=== PATIENT | male | born 1975 | race Two or more races ===

== ENCOUNTER 2022-09-02 16:27 | Inpatient (IN) | payer MEDICAID, OTHER ==
[~2022-09-02] VITALS: Ht 177.8 cm; Wt 74.1 kg
[2022-09-02] MEDS ORDERED: SODIUM CHLORIDE 0.9% 1,000 ML IV ONE (16:45)
[2022-09-02] MEDS ORDERED: ETOMIDATE (2MG/ML) 20ML VIAL IV ONE (16:45)
[2022-09-02] MEDS ORDERED: PANTOPRAZOLE 40 MG/10 ML VIAL INJ IV ONE (16:45)
[2022-09-02] MEDS ORDERED: NOREPINEPHRINE 8 MG/250ML KIT 250 ML IV SCH (16:45)
[2022-09-02] MEDS ORDERED: SUCCINYLCHOLINE CHLORIDE 20 MG/ML 10ML VIAL IV ONE (16:45)
[2022-09-02] MEDS: MIDAZOLAM DRIP 50 mg/50mL 50 ML IV SCH ×2 (16:45→23:10)
[2022-09-02] MEDS ORDERED: NOREPINEPHRINE 8 MG/250ML KIT 250 ML IV ONE (16:49)
[2022-09-02] MEDS ORDERED: OCTREOTIDE ACETATE 100 MCG in SODIUM CHL 0.9% 50 ML IV ONE (17:00)
[2022-09-02 17:07] LABS: Hematocrit 15.1 % (41.0-53.0); Mean Corpuscular Hemoglobin 29.4 pg (28.0-32.0); Mean Corpuscular Hgb Conc. 30.9 g/dL (32.0-36.0); Mean Corpuscular Volume 95.1 fL (80.0-100.0); Red Blood Cells 1.59 10^6/uL (4.5-5.90); Red Cell Distribution Width 13.6 % (11.8-14.3)
[2022-09-02] MEDS ORDERED: OCTREOTIDE ACETATE 100 MCG/ML VL IV ONE ×2 (17:15)
[2022-09-02 17:18] LABS: White Blood Cell 58.3 10^3/uL (4.4-10.8)
[2022-09-02 17:19] LABS: Hemoglobin 4.7 g/dL (13.5-17.5)
[2022-09-02 17:21] LABS: Basophils % (manual) 0 (0.0-2.0); Blast Cells 0; Eosinophils % (manual) 0 (0-7); Promyelocytes % 0; Reactive Lymphocytes 0
[2022-09-02 17:22] LABS: INR 1.25 (0.9-1.15); Partial Thromboplastin Time 45.4 sec (24.6-33.4)
[2022-09-02 17:24] LABS: Albumin 1.1 g/dL (3.4-5.0); BUN/Creatinine Ratio 30.4 (10.0-20.0); Potassium 4.3 mmol/L (3.5-5.1)
[2022-09-02 17:27] LABS: Bilirubin, Total 0.2 mg/dL (0.2-1.0)
[2022-09-02] MEDS: NOREPINEPHRINE 8 MG/250ML KIT 250 ML IV SCH (17:30)
[2022-09-02] MEDS ORDERED: CEFEPIME 1GM/ 50ML 50 ML IV ONE (17:30)
[2022-09-02] MEDS ORDERED: SODIUM CHLORIDE 0.9% IV ONE (17:30)
[2022-09-02 18:10] VITALS: BP 85/42
[2022-09-02] MEDS ORDERED: SODIUM CHLORIDE 0.9% 2,450 ML IV ONE (18:15)
[2022-09-02 18:26] LABS: Lactic Acid w/Reflex 9.8 mmol/L (0.4-2.0)
[2022-09-02] MEDS: OCTREOTIDE ACETATE 500 MCG in SODIUM CHL 0.9% 99 ML IV SCH (19:06)
[2022-09-02 19:12] LABS: Band Neutrophils % (manual) 12; Lymphocytes % (manual) 6 (10.0-50.0); Metamyelocytes % 5; Monocytes % (manual) 1 (0-12); Myelocytes % 6
[2022-09-02 20:00] VITALS: BP 90/47
[2022-09-02 20:01] LABS: Urine Amorphous Crystal FEW /hpf (None Seen); Urine Bacteria FEW /hpf (None Seen); Urine Blood 1+ /uL (Negative); Urine Mucus FEW (None Seen); Urine Specific Gravity 1.013 (1.001-1.035); Urine Sperm PRESENT /hpf (None Seen); Urine WBC 24 /hpf (0 - 3)
[2022-09-02 20:05] LABS: Alcohol, Urine < 3.0 mg/dL (0-10); Amphetamine Screen, Urine NEGATIVE (NEGATIVE); Barbiturate Scree,Urine NEGATIVE (NEGATIVE); Benzodiazephine Screen, Urine POSITIVE (NEGATIVE); Cannabinoid Screen, Urine NEGATIVE (NEGATIVE); Cocaine Screen, Urine NEGATIVE (NEGATIVE)
[2022-09-02 20:07] VITALS: BP 90/47
[2022-09-02 20:13] LABS: Opiate Scree,Urine NEGATIVE (NEGATIVE); Phencyclidine Screen, Urine NEGATIVE (NEGATIVE)
[2022-09-02] MEDS ORDERED: fentaNYL Drip 2500mCg/250mlNS 250 ML IV ONE (20:17)
[2022-09-02] MEDS: fentaNYL Drip 2500mCg/250mlNS 250 ML IV SCH (20:18)
[2022-09-02 20:29] VITALS: BP 144/57
[2022-09-02 20:40] LABS: Lactic Acid w/Reflex 5.1 mmol/L (0.4-2.0)
[2022-09-02] MEDS: InsuLIN REG 1unit/0.01ml Soln (100units/ml) SC SCH (22:00)
[2022-09-02] MEDS ORDERED: ALBUMIN 25% 100 ML IV ONE (22:00)
[2022-09-02] MEDS ORDERED: VANCOMYCIN PER PHARMACY 0 MG IV SCH (22:00)
[2022-09-02] MEDS ORDERED: IBUPROFEN 100MG/5ML ORAL SUSP 100 MG/5 ML UD GT PRN (22:00)
[2022-09-02 22:05] VITALS: BP 92/47
[2022-09-02] MEDS ORDERED: SODIUM CHLORIDE 0.9% 1,000 ML IV SCH (22:15)
[2022-09-02 22:54] LABS: Lactic Acid w/Reflex 8.6 mmol/L (0.4-2.0)
[2022-09-02] MEDS ORDERED: VANCOMYCIN 1GM/250ML 250 ML IV ONE (23:00)
[2022-09-02 23:15] VITALS: BP 88/46
[2022-09-02] MEDS ORDERED: NITROGLYCERIN 0.4 MG SL TAB SL PRN (23:30)
[2022-09-02] MEDS ORDERED: MORPHINE SULFATE INJ 2 MG/ml SYRG IV PRN (23:30)
[2022-09-02] MEDS: FAMOTIDINE (10MG/ML) 2ML VL IV SCH (23:32)
[2022-09-03] VITALS (100 sets, daily range): BP systolic 86–111; BP diastolic 38–65
[2022-09-03] MEDS: PIPERACILLIN-TAZOB 2.25GM 50 ML IV SCH ×4 (00:28→17:38)
[2022-09-03] MEDS ORDERED: ACETAMINOPHEN 650 MG RECT SUPP PR ONE (00:30)
[2022-09-03] MEDS: ACCU-CHEK COMFORT CURVE STRIP VI SCH ×5 (01:38→21:52)
[2022-09-03] MEDS ORDERED: OCTREOTIDE ACETATE 100 MCG/ML VL ONE (02:35)
[2022-09-03] MEDS: MIDAZOLAM DRIP 50 mg/50mL 50 ML IV SCH ×4 (02:40→20:56)
[2022-09-03] MEDS: OCTREOTIDE ACETATE 500 MCG in SODIUM CHL 0.9% 99 ML IV SCH ×3 (04:46→23:07)
[2022-09-03] MEDS: InsuLIN REG 1unit/0.01ml Soln (100units/ml) SC SCH ×4 (06:15→21:53)
[2022-09-03 08:31] LABS: Hemoglobin 7.1 g/dL (13.5-17.5)
[2022-09-03 08:33] LABS: Hematocrit 21.9 % (41.0-53.0); Mean Corpuscular Hemoglobin 27.6 pg (28.0-32.0); Mean Corpuscular Hgb Conc. 32.6 g/dL (32.0-36.0); Mean Corpuscular Volume 84.8 fL (80.0-100.0); Red Blood Cells 2.58 10^6/uL (4.5-5.90); Red Cell Distribution Width 18.3 % (11.8-14.3)
[2022-09-03 08:51] LABS: Basophils % (manual) 0 (0.0-2.0); Blast Cells 0; Eosinophils % (manual) 0 (0-7); Metamyelocytes % 0; Promyelocytes % 0; Reactive Lymphocytes 0; White Blood Cell 39.3 10^3/uL (4.4-10.8)
[2022-09-03 08:54] LABS: Albumin 1.8 g/dL (3.4-5.0); Calcium 6.9 mg/dL (8.5-10.1); Potassium 4.1 mmol/L (3.5-5.1)
[2022-09-03 08:58] LABS: BUN/Creatinine Ratio 35.7 (10.0-20.0); Bilirubin, Total 1.3 mg/dL (0.2-1.0); Total Protein 4.3 g/dL (6.4-8.2)
[2022-09-03 09:23] LABS: Band Neutrophils % (manual) 30; Lymphocytes % (manual) 7 (10.0-50.0); Monocytes % (manual) 2 (0-12); Myelocytes % 1
[2022-09-03] MEDS: FAMOTIDINE (10MG/ML) 2ML VL IV SCH (09:57)
[2022-09-03] MEDS: NOREPINEPHRINE 8 MG/250ML KIT 250 ML IV SCH ×2 (09:59→23:07)
[2022-09-03] MEDS ORDERED: SUCRALFATE 1 GM/10 ML ORAL SUSP GT SCH ×2 (12:00→17:15)
[2022-09-03 12:55] LABS: Cholesterol < 50 mg/dL (< 200)
[2022-09-03 12:58] LABS: HDL Cholesterol 9 mg/dL (40-59); LDL Cholesterol 17 mg/dL (< 100); Triglycerides 161 mg/dL (< 150)
[2022-09-03] MEDS ORDERED: SODIUM CHLORIDE 0.9% 2,000 ML IV ONE (13:45)
[2022-09-03] MEDS: SODIUM CHLORIDE 0.9% 1,000 ML IV SCH ×2 (15:28→21:52)
[2022-09-03] MEDS: fentaNYL Drip 2500mCg/250mlNS 250 ML IV SCH (15:28)
[2022-09-03] MEDS: PANTOPRAZOLE 40mg/50ML NS AE 50 ML IV SCH ×2 (17:38→20:56)
[2022-09-03] MEDS ORDERED: PANTOPRAZOLE 40 MG/10 ML VIAL INJ IV SCH (22:00)
[2022-09-04] VITALS (114 sets, daily range): BP systolic 55–160; BP diastolic 35–104
[2022-09-04] MEDS: PIPERACILLIN-TAZOB 2.25GM 50 ML IV SCH ×4 (00:06→17:52)
[2022-09-04] MEDS: PANTOPRAZOLE 40mg/50ML NS AE 50 ML IV SCH ×5 (02:05→17:52)
[2022-09-04] MEDS: fentaNYL Drip 2500mCg/250mlNS 250 ML IV SCH (04:27)
[2022-09-04] MEDS: MIDAZOLAM DRIP 50 mg/50mL 50 ML IV SCH ×3 (04:28→21:43)
[2022-09-04 04:45] LABS: Hematocrit 17.7 % (41.0-53.0); Mean Corpuscular Hemoglobin 28.8 pg (28.0-32.0); Mean Corpuscular Hgb Conc. 34.7 g/dL (32.0-36.0); Red Blood Cells 2.13 10^6/uL (4.5-5.90); Red Cell Distribution Width 18.6 % (11.8-14.3)
[2022-09-04 05:05] LABS: Albumin 1.5 g/dL (3.4-5.0); Calcium 7.3 mg/dL (8.5-10.1); Potassium 4.2 mmol/L (3.5-5.1)
[2022-09-04 05:07] LABS: BUN/Creatinine Ratio 26.5 (10.0-20.0); Hemoglobin 6.1 g/dL (13.5-17.5); White Blood Cell 42.1 10^3/uL (4.4-10.8)
[2022-09-04 05:08] LABS: Basophils % (manual) 0 (0.0-2.0); Blast Cells 0; Eosinophils % (manual) 0 (0-7); Metamyelocytes % 0; Monocytes % (manual) 0 (0-12); Myelocytes % 0; Promyelocytes % 0; Reactive Lymphocytes 0
[2022-09-04 05:09] LABS: Bilirubin, Total 0.8 mg/dL (0.2-1.0); Total Protein 4.6 g/dL (6.4-8.2)
[2022-09-04] MEDS: NOREPINEPHRINE 8 MG/250ML KIT 250 ML IV SCH (05:38)
[2022-09-04] MEDS: SODIUM CHLORIDE 0.9% 1,000 ML IV SCH ×3 (05:38→13:38)
[2022-09-04] MEDS: ACCU-CHEK COMFORT CURVE STRIP VI SCH ×4 (06:23→22:01)
[2022-09-04] MEDS: InsuLIN REG 1unit/0.01ml Soln (100units/ml) SC SCH ×4 (06:27→22:30)
[2022-09-04 08:35] LABS: Band Neutrophils % (manual) 26; Lymphocytes % (manual) 6 (10.0-50.0)
[2022-09-04] MEDS ORDERED: VANCOMYCIN 1GM/250ML 250 ML IV ONE (10:00)
[2022-09-04] MEDS: OCTREOTIDE ACETATE 500 MCG in SODIUM CHL 0.9% 99 ML IV SCH ×3 (12:30→21:00)
[2022-09-04 12:32] LABS: Hematocrit 20.9 % (41.0-53.0); Hemoglobin 7.1 g/dL (13.5-17.5); Mean Corpuscular Hemoglobin 28.7 pg (28.0-32.0); Mean Corpuscular Hgb Conc. 34.1 g/dL (32.0-36.0); Mean Corpuscular Volume 84.3 fL (80.0-100.0); Red Blood Cells 2.48 10^6/uL (4.5-5.90); Red Cell Distribution Width 17.6 % (11.8-14.3)
[2022-09-04 12:44] LABS: White Blood Cell 39.4 10^3/uL (4.4-10.8)
[2022-09-04 12:45] LABS: INR 1.03 (0.9-1.15)
[2022-09-04 12:46] LABS: Basophils % (manual) 0 (0.0-2.0); Blast Cells 0; Eosinophils % (manual) 0 (0-7); Metamyelocytes % 0; Promyelocytes % 0; Reactive Lymphocytes 0
[2022-09-04] MEDS ORDERED: DOPamine 1600MCG/ML D5W 250 ML IV SCH (13:00)
[2022-09-04] MEDS ORDERED: DOPamine 1600MCG/ML D5W 250 ML IV ONE (13:20)
[2022-09-04 14:09] LABS: Monocytes % (manual) 3 (0-12)
[2022-09-04 14:36] LABS: Band Neutrophils % (manual) 29; Lymphocytes % (manual) 3 (10.0-50.0); Myelocytes % 3
[2022-09-04] MEDS ORDERED: ATROPINE SULFATE 1 MG/1 ML VIAL ONE (18:31)
[2022-09-04] MEDS: DOPamine 1600MCG/ML D5W 250 ML IV SCH (20:30)
[2022-09-05] VITALS (105 sets, daily range): BP systolic 102–140; BP diastolic 57–90
[2022-09-05] MEDS: PIPERACILLIN-TAZOB 2.25GM 50 ML IV SCH ×4 (00:31→17:58)
[2022-09-05] MEDS: MIDAZOLAM DRIP 50 mg/50mL 50 ML IV SCH ×7 (01:00→23:00)
[2022-09-05] MEDS: DOPamine 1600MCG/ML D5W 250 ML IV SCH ×2 (01:00→12:14)
[2022-09-05] MEDS: SODIUM CHLORIDE 0.9% 1,000 ML IV SCH ×3 (04:30→20:35)
[2022-09-05] MEDS: PANTOPRAZOLE 40mg/50ML NS AE 50 ML IV SCH ×4 (05:00→20:30)
[2022-09-05 06:31] LABS: Hematocrit 22.3 % (41.0-53.0); Hemoglobin 7.9 g/dL (13.5-17.5)
[2022-09-05 06:33] LABS: Mean Corpuscular Hemoglobin 29.4 pg (28.0-32.0); Mean Corpuscular Hgb Conc. 35.3 g/dL (32.0-36.0); Mean Corpuscular Volume 83.3 fL (80.0-100.0); Red Blood Cells 2.68 10^6/uL (4.5-5.90); Red Cell Distribution Width 16.4 % (11.8-14.3); White Blood Cell 27.5 10^3/uL (4.4-10.8)
[2022-09-05] MEDS: ACCU-CHEK COMFORT CURVE STRIP VI SCH ×4 (06:56→22:02)
[2022-09-05] MEDS: InsuLIN REG 1unit/0.01ml Soln (100units/ml) SC SCH ×4 (06:56→22:00)
[2022-09-05 07:07] LABS: Potassium 3.6 mmol/L (3.5-5.1)
[2022-09-05 07:17] LABS: Albumin 1.9 g/dL (3.4-5.0); BUN/Creatinine Ratio 21.3 (10.0-20.0); Calcium 7.9 mg/dL (8.5-10.1); Total Protein 5.4 g/dL (6.4-8.2)
[2022-09-05 07:42] LABS: Basophils % (manual) 0 (0.0-2.0); Blast Cells 0; Eosinophils % (manual) 0 (0-7); Metamyelocytes % 0; Promyelocytes % 0; Reactive Lymphocytes 0
[2022-09-05] MEDS: VANCOMYCIN 750mg/250ml 250 ML IV SCH ×2 (11:26→23:30)
[2022-09-05 12:20] LABS: Band Neutrophils % (manual) 33; Lymphocytes % (manual) 8 (10.0-50.0); Monocytes % (manual) 7 (0-12); Myelocytes % 2
[2022-09-05] MEDS: OCTREOTIDE ACETATE 500 MCG in SODIUM CHL 0.9% 99 ML IV SCH ×2 (14:45→17:05)
[2022-09-05] MEDS: NOREPINEPHRINE 8 MG/250ML KIT 250 ML IV SCH (17:30)
[2022-09-05] MEDS: SUCRALFATE 1 GM/10 ML ORAL SUSP GT SCH ×2 (17:57→21:56)
[2022-09-05] MEDS: fentaNYL Drip 2500mCg/250mlNS 250 ML IV SCH ×2 (23:00)
[2022-09-06] VITALS (101 sets, daily range): BP systolic 102–168; BP diastolic 55–91
[2022-09-06] MEDS: PIPERACILLIN-TAZOB 2.25GM 50 ML IV SCH ×2 (00:08→06:08)
[2022-09-06] MEDS: PANTOPRAZOLE 40mg/50ML NS AE 50 ML IV SCH ×5 (02:00→21:44)
[2022-09-06] MEDS: MIDAZOLAM DRIP 50 mg/50mL 50 ML IV SCH ×3 (02:30→21:46)
[2022-09-06] MEDS: OCTREOTIDE ACETATE 500 MCG in SODIUM CHL 0.9% 99 ML IV SCH ×4 (03:45→23:32)
[2022-09-06 04:27] LABS: Hemoglobin 8.3 g/dL (13.5-17.5)
[2022-09-06 04:30] LABS: Hematocrit 23.5 % (41.0-53.0); Mean Corpuscular Hemoglobin 29.5 pg (28.0-32.0); Mean Corpuscular Hgb Conc. 35.3 g/dL (32.0-36.0); Mean Corpuscular Volume 83.5 fL (80.0-100.0); Red Blood Cells 2.82 10^6/uL (4.5-5.90); Red Cell Distribution Width 16.3 % (11.8-14.3)
[2022-09-06] MEDS: SODIUM CHLORIDE 0.9% 1,000 ML IV SCH ×3 (04:30→20:30)
[2022-09-06 04:34] LABS: Basophils % (manual) 0 (0.0-2.0); Blast Cells 0; Myelocytes % 0; Promyelocytes % 0; Reactive Lymphocytes 0
[2022-09-06 04:45] LABS: Potassium 3.3 mmol/L (3.5-5.1)
[2022-09-06 04:53] LABS: Albumin 1.7 g/dL (3.4-5.0); BUN/Creatinine Ratio 16.6 (10.0-20.0); Bilirubin, Total 0.9 mg/dL (0.2-1.0); Calcium 7.4 mg/dL (8.5-10.1); Total Protein 5.3 g/dL (6.4-8.2)
[2022-09-06] MEDS: SUCRALFATE 1 GM/10 ML ORAL SUSP GT SCH ×4 (06:08→21:44)
[2022-09-06] MEDS: InsuLIN REG 1unit/0.01ml Soln (100units/ml) SC SCH ×4 (06:51→21:45)
[2022-09-06] MEDS: ACCU-CHEK COMFORT CURVE STRIP VI SCH ×4 (06:51→21:45)
[2022-09-06 08:18] LABS: Band Neutrophils % (manual) 7; Eosinophils % (manual) 1 (0-7); Lymphocytes % (manual) 9 (10.0-50.0); Metamyelocytes % 4; Monocytes % (manual) 2 (0-12)
[2022-09-06] MEDS: POTASSIUM CHL 20MEQ/100ML 100 ML IV SCH ×2 (08:30→10:30)
[2022-09-06] MEDS: DOPamine 1600MCG/ML D5W 250 ML IV SCH ×3 (11:24→21:55)
[2022-09-06] MEDS: VANCOMYCIN 750mg/250ml 250 ML IV SCH ×2 (11:31→23:32)
[2022-09-06] MEDS: PIPERACILLIN-TAZOB 3.375GM 100 ML IV SCH ×2 (14:00→21:44)
[2022-09-06] MEDS: NOREPINEPHRINE 8 MG/250ML KIT 250 ML IV SCH (17:12)
[2022-09-06] MEDS: fentaNYL Drip 2500mCg/250mlNS 250 ML IV SCH (21:47)
[2022-09-06] MEDS ORDERED: VANCOMYCIN 1GM/250ML 250 ML IV ONE (23:24)
[2022-09-07] VITALS (92 sets, daily range): BP systolic 94–164; BP diastolic 52–94
[2022-09-07] MEDS: PANTOPRAZOLE 40mg/50ML NS AE 50 ML IV SCH ×5 (02:53→21:31)
[2022-09-07 04:20] LABS: Hematocrit 26.4 % (41.0-53.0); Mean Corpuscular Hemoglobin 29.9 pg (28.0-32.0); Mean Corpuscular Volume 88.1 fL (80.0-100.0); Red Cell Distribution Width 16.2 % (11.8-14.3); White Blood Cell 19.2 10^3/uL (4.4-10.8)
[2022-09-07] MEDS: SODIUM CHLORIDE 0.9% 1,000 ML IV SCH ×3 (04:30→23:40)
[2022-09-07 04:39] LABS: Basophils % (manual) 0 (0.0-2.0); Blast Cells 0; Eosinophils % (manual) 0 (0-7); Metamyelocytes % 0; Promyelocytes % 0; Reactive Lymphocytes 0
[2022-09-07 04:44] LABS: Albumin 1.6 g/dL (3.4-5.0); Calcium 7.5 mg/dL (8.5-10.1)
[2022-09-07 04:46] LABS: BUN/Creatinine Ratio 12.8 (10.0-20.0)
[2022-09-07 04:48] LABS: Bilirubin, Total 1.6 mg/dL (0.2-1.0); Total Protein 5.3 g/dL (6.4-8.2)
[2022-09-07 05:25] LABS: Potassium 2.9 mmol/L (3.5-5.1)
[2022-09-07] MEDS: SUCRALFATE 1 GM/10 ML ORAL SUSP GT SCH ×4 (06:06→21:30)
[2022-09-07] MEDS: DEXTROSE (50%) 50ML SYRG IV PRN ×3 (06:06→17:30)
[2022-09-07] MEDS: PIPERACILLIN-TAZOB 3.375GM 100 ML IV SCH ×3 (06:06→21:30)
[2022-09-07] MEDS: InsuLIN REG 1unit/0.01ml Soln (100units/ml) SC SCH ×4 (07:00→21:36)
[2022-09-07] MEDS: ACCU-CHEK COMFORT CURVE STRIP VI SCH ×4 (07:38→21:36)
[2022-09-07 08:04] LABS: Band Neutrophils % (manual) 29; Lymphocytes % (manual) 29 (10.0-50.0); Monocytes % (manual) 6 (0-12); Myelocytes % 3
[2022-09-07] MEDS: POTASSIUM CHL 20MEQ/100ML 100 ML IV SCH ×4 (08:24→17:30)
[2022-09-07] MEDS: MIDAZOLAM DRIP 50 mg/50mL 50 ML IV SCH ×2 (08:34→08:36)
[2022-09-07] MEDS: DOPamine 1600MCG/ML D5W 250 ML IV SCH (08:57)
[2022-09-07] MEDS: VANCOMYCIN 750mg/250ml 250 ML IV SCH ×2 (10:50→23:39)
[2022-09-07] MEDS ORDERED: DEXTROSE 10% 250 ML IV ONE ×2 (10:56→17:27)
[2022-09-07] MEDS: OCTREOTIDE ACETATE 500 MCG in SODIUM CHL 0.9% 99 ML IV SCH ×2 (11:30→21:30)
[2022-09-07 12:30] LABS: Calcium 7.6 mg/dL (8.5-10.1)
[2022-09-07 12:32] LABS: BUN/Creatinine Ratio 10.7 (10.0-20.0)
[2022-09-07] MEDS ORDERED: EPINEPHrine HCL 0.5 ML NEB ONE (15:02)
[2022-09-07] MEDS: NOREPINEPHRINE 8 MG/250ML KIT 250 ML IV SCH (17:30)
[2022-09-07] MEDS: fentaNYL Drip 2500mCg/250mlNS 250 ML IV SCH (23:00)
[2022-09-08] VITALS (24 sets, daily range): BP systolic 112–144; BP diastolic 62–86
[2022-09-08] MEDS: PANTOPRAZOLE 40mg/50ML NS AE 50 ML IV SCH ×2 (03:17→05:50)
[2022-09-08] MEDS: SODIUM CHLORIDE 0.9% 1,000 ML IV SCH ×4 (04:30→19:53)
[2022-09-08 04:45] LABS: Hematocrit 26.8 % (41.0-53.0); Hemoglobin 8.9 g/dL (13.5-17.5); Mean Corpuscular Hemoglobin 29.2 pg (28.0-32.0); Mean Corpuscular Hgb Conc. 33.1 g/dL (32.0-36.0); Mean Corpuscular Volume 88.4 fL (80.0-100.0); Red Blood Cells 3.03 10^6/uL (4.5-5.90); Red Cell Distribution Width 16.5 % (11.8-14.3); White Blood Cell 16.5 10^3/uL (4.4-10.8)
[2022-09-08 04:50] LABS: Basophils % (manual) 0 (0.0-2.0); Blast Cells 0; Promyelocytes % 0; Reactive Lymphocytes 0
[2022-09-08 04:52] LABS: Albumin 1.7 g/dL (3.4-5.0); BUN/Creatinine Ratio 8.7 (10.0-20.0); Calcium 7.4 mg/dL (8.5-10.1); Potassium 3.4 mmol/L (3.5-5.1)
[2022-09-08 04:55] LABS: Bilirubin, Total 1.4 mg/dL (0.2-1.0); Total Protein 5.4 g/dL (6.4-8.2)
[2022-09-08] MEDS: ACCU-CHEK COMFORT CURVE STRIP VI SCH ×4 (05:48→21:06)
[2022-09-08] MEDS: InsuLIN REG 1unit/0.01ml Soln (100units/ml) SC SCH ×4 (05:48→21:23)
[2022-09-08] MEDS: PIPERACILLIN-TAZOB 3.375GM 100 ML IV SCH ×3 (05:50→21:06)
[2022-09-08] MEDS: SUCRALFATE 1 GM/10 ML ORAL SUSP GT SCH ×4 (05:50→21:06)
[2022-09-08 07:08] LABS: Band Neutrophils % (manual) 6; Eosinophils % (manual) 4 (0-7); Lymphocytes % (manual) 13 (10.0-50.0); Metamyelocytes % 1; Monocytes % (manual) 4 (0-12); Myelocytes % 6
[2022-09-08] MEDS: NOREPINEPHRINE 8 MG/250ML KIT 250 ML IV SCH (07:34)
[2022-09-08] MEDS: DOPamine 1600MCG/ML D5W 250 ML IV SCH (07:34)
[2022-09-08] MEDS: OCTREOTIDE ACETATE 500 MCG in SODIUM CHL 0.9% 99 ML IV SCH ×2 (08:00→13:44)
[2022-09-08] MEDS ORDERED: ZOLPIDEM TARTRATE 5 MG TAB PO PRN (08:45)
[2022-09-08] MEDS: PANTOPRAZOLE 40 MG/10 ML VIAL INJ IV SCH ×2 (09:52→21:06)
[2022-09-08] MEDS: NICOTINE 21MG/24 HR TOPICAL PATCH TD SCH (09:52)
[2022-09-08] MEDS: MIDAZOLAM DRIP 50 mg/50mL 50 ML IV SCH ×2 (10:38→21:40)
[2022-09-08] MEDS: VANCOMYCIN 750mg/250ml 250 ML IV SCH ×2 (11:00→23:40)
[2022-09-08] MEDS: fentaNYL Drip 2500mCg/250mlNS 250 ML IV SCH (21:40)
[2022-09-09] MEDS: DOPamine 1600MCG/ML D5W 250 ML IV SCH (03:12)
[2022-09-09] MEDS: SUCRALFATE 1 GM/10 ML ORAL SUSP GT SCH ×4 (05:27→22:06)
[2022-09-09] MEDS: PIPERACILLIN-TAZOB 3.375GM 100 ML IV SCH ×3 (05:27→22:06)
[2022-09-09] MEDS: InsuLIN REG 1unit/0.01ml Soln (100units/ml) SC SCH ×4 (07:00→22:00)
[2022-09-09] MEDS: ACCU-CHEK COMFORT CURVE STRIP VI SCH ×4 (07:09→22:06)
[2022-09-09] MEDS: OCTREOTIDE ACETATE 500 MCG in SODIUM CHL 0.9% 99 ML IV SCH ×2 (08:29→19:10)
[2022-09-09 09:00] VITALS: BP 118/75
[2022-09-09] MEDS ORDERED: TEMAZEPAM 15 MG CAP PO PRN (09:00)
[2022-09-09] MEDS: PANTOPRAZOLE 40 MG/10 ML VIAL INJ IV SCH ×2 (10:00→22:06)
[2022-09-09] MEDS: NICOTINE 21MG/24 HR TOPICAL PATCH TD SCH (10:00)
[2022-09-09] MEDS: SODIUM CHLORIDE 0.9% 1,000 ML IV SCH ×2 (12:30→20:30)
[2022-09-09 13:00] VITALS: BP 124/77
[2022-09-09] MEDS: VANCOMYCIN 750mg/250ml 250 ML IV SCH (15:43)
[2022-09-09 17:00] VITALS: BP 137/90
[2022-09-09 22:00] VITALS: BP 133/80
[2022-09-10] MEDS: VANCOMYCIN 750mg/250ml 250 ML IV SCH ×2 (01:42→14:44)
[2022-09-10] MEDS: ONDANSETRON HCL 4 MG/2 ML VIAL IV PRN ×2 (01:53→11:06)
[2022-09-10] MEDS: OCTREOTIDE ACETATE 500 MCG in SODIUM CHL 0.9% 99 ML IV SCH (04:20)
[2022-09-10] MEDS: SODIUM CHLORIDE 0.9% 1,000 ML IV SCH ×3 (04:20→20:30)
[2022-09-10 05:00] VITALS: BP 91/64
[2022-09-10] MEDS: SUCRALFATE 1 GM/10 ML ORAL SUSP GT SCH ×4 (06:00→22:00)
[2022-09-10] MEDS: PIPERACILLIN-TAZOB 3.375GM 100 ML IV SCH ×3 (06:00→22:14)
[2022-09-10] MEDS: InsuLIN REG 1unit/0.01ml Soln (100units/ml) SC SCH ×4 (06:45→21:29)
[2022-09-10] MEDS: ACCU-CHEK COMFORT CURVE STRIP VI SCH ×4 (06:45→21:29)
[2022-09-10] MEDS: PANTOPRAZOLE 40 MG/10 ML VIAL INJ IV SCH ×2 (11:05→22:14)
[2022-09-10] MEDS: NICOTINE 21MG/24 HR TOPICAL PATCH TD SCH (11:06)
[2022-09-10 22:00] VITALS: BP 105/70
[2022-09-11] VITALS (15 sets, daily range): BP systolic 103–121; BP diastolic 57–72
[2022-09-11] MEDS: VANCOMYCIN 750mg/250ml 250 ML IV SCH (01:30)
[2022-09-11] MEDS: SODIUM CHLORIDE 0.9% 1,000 ML IV SCH ×3 (04:30→22:36)
[2022-09-11] MEDS: SUCRALFATE 1 GM/10 ML ORAL SUSP GT SCH ×4 (06:00→22:30)
[2022-09-11] MEDS: PIPERACILLIN-TAZOB 3.375GM 100 ML IV SCH ×3 (06:09→22:36)
[2022-09-11 06:21] LABS: Calcium 7.5 mg/dL (8.5-10.1)
[2022-09-11 06:27] LABS: Albumin 1.7 g/dL (3.4-5.0); BUN/Creatinine Ratio 14.9 (10.0-20.0); Bilirubin, Total 0.4 mg/dL (0.2-1.0)
[2022-09-11] MEDS: ACCU-CHEK COMFORT CURVE STRIP VI SCH ×4 (06:42→22:41)
[2022-09-11] MEDS: InsuLIN REG 1unit/0.01ml Soln (100units/ml) SC SCH ×4 (06:42→22:00)
[2022-09-11 08:14] LABS: Hematocrit 16.3 % (41.0-53.0)
[2022-09-11 08:15] LABS: Mean Corpuscular Hemoglobin 28.9 pg (28.0-32.0); Mean Corpuscular Hgb Conc. 34.3 g/dL (32.0-36.0); Mean Corpuscular Volume 84.2 fL (80.0-100.0); Red Blood Cells 1.93 10^6/uL (4.5-5.90); Red Cell Distribution Width 16.3 % (11.8-14.3); White Blood Cell 14.6 10^3/uL (4.4-10.8)
[2022-09-11 08:44] LABS: Hemoglobin 5.6 g/dL (13.5-17.5)
[2022-09-11 08:46] LABS: Basophils % (manual) 0 (0.0-2.0); Blast Cells 0; Metamyelocytes % 0; Promyelocytes % 0; Reactive Lymphocytes 0
[2022-09-11 09:58] LABS: Hepatitis B Surface Antibody Positive (Negative)
[2022-09-11] MEDS: NICOTINE 21MG/24 HR TOPICAL PATCH TD SCH (10:00)
[2022-09-11 10:10] LABS: Hepatitis A Total Antibody Positive (Negative)
[2022-09-11] MEDS ORDERED: PANTOPRAZOLE 40mg/50ML NS AE 50 ML IV SCH (10:15)
[2022-09-11] MEDS: PANTOPRAZOLE 40mg/50ML NS AE 50 ML IV SCH ×3 (10:28→21:15)
[2022-09-11 11:54] LABS: Hepatitis C Antibody Negative (Negative)
[2022-09-11 12:13] LABS: Band Neutrophils % (manual) 1; Eosinophils % (manual) 2 (0-7); Lymphocytes % (manual) 21 (10.0-50.0); Monocytes % (manual) 7 (0-12); Myelocytes % 2
[2022-09-12] MEDS: PANTOPRAZOLE 40mg/50ML NS AE 50 ML IV SCH ×5 (01:38→21:55)
[2022-09-12] MEDS: SODIUM CHLORIDE 0.9% 1,000 ML IV SCH ×3 (04:35→20:32)
[2022-09-12 05:00] VITALS: BP 104/62
[2022-09-12 06:12] LABS: Hematocrit 22.6 % (41.0-53.0); Hemoglobin 7.9 g/dL (13.5-17.5); White Blood Cell 14.5 10^3/uL (4.4-10.8)
[2022-09-12 06:14] LABS: Mean Corpuscular Hemoglobin 30.3 pg (28.0-32.0); Mean Corpuscular Hgb Conc. 34.9 g/dL (32.0-36.0); Mean Corpuscular Volume 86.7 fL (80.0-100.0); Red Cell Distribution Width 16.2 % (11.8-14.3)
[2022-09-12 06:23] LABS: Basophils % (manual) 0 (0.0-2.0); Blast Cells 0; Metamyelocytes % 0; Promyelocytes % 0; Reactive Lymphocytes 0
[2022-09-12 06:32] LABS: Calcium 7.7 mg/dL (8.5-10.1); Potassium 3.7 mmol/L (3.5-5.1)
[2022-09-12 06:35] LABS: BUN/Creatinine Ratio 9.1 (10.0-20.0)
[2022-09-12] MEDS: SUCRALFATE 1 GM/10 ML ORAL SUSP GT SCH ×4 (06:39→21:55)
[2022-09-12] MEDS: PIPERACILLIN-TAZOB 3.375GM 100 ML IV SCH ×3 (06:41→21:56)
[2022-09-12] MEDS: InsuLIN REG 1unit/0.01ml Soln (100units/ml) SC SCH ×4 (07:00→21:56)
[2022-09-12] MEDS: ACCU-CHEK COMFORT CURVE STRIP VI SCH ×4 (07:05→21:56)
[2022-09-12 07:41] LABS: Band Neutrophils % (manual) 1; Eosinophils % (manual) 4 (0-7); Lymphocytes % (manual) 13 (10.0-50.0); Monocytes % (manual) 3 (0-12); Myelocytes % 1
[2022-09-12 08:00] VITALS: BP 114/73
[2022-09-12 09:00] VITALS: BP 114/73
[2022-09-12] MEDS: NICOTINE 21MG/24 HR TOPICAL PATCH TD SCH (10:00)
[2022-09-12 13:00] VITALS: BP 108/76
[2022-09-12 17:00] VITALS: BP 121/73
[2022-09-12 21:27] VITALS: BP 102/56
[2022-09-13] VITALS (14 sets, daily range): BP systolic 90–120; BP diastolic 54–74
[2022-09-13] MEDS: PANTOPRAZOLE 40mg/50ML NS AE 50 ML IV SCH ×5 (02:36→23:13)
[2022-09-13 05:43] LABS: Basophils # (auto) 0.1 10 ^3/uL (0-0.2); Eosinophils # (auto) 0.3 10 ^3/uL (0-0.8); Mean Corpuscular Hgb Conc. 34.5 g/dL (32.0-36.0); White Blood Cell 16.6 10^3/uL (4.4-10.8)
[2022-09-13 05:45] LABS: Basophils % (auto) 0.3 % (0.0-2.0); Eosinophils % (auto) 1.9 % (0.0-7.0); Hematocrit 15.8 % (41.0-53.0); Lymphocytes # (auto) 2.2 10 ^3/uL (0.4-5.4); Lymphocytes % (auto) 13.2 % (10.0-50.0); Mean Corpuscular Volume 86.8 fL (80.0-100.0); Monocytes # (auto) 1.1 10 ^3/uL (0-1.3); Monocytes % (auto) 6.8 % (0.0-12.0); Neutrophils # (auto) 12.9 10 ^3/uL (1.6-8.6); Neutrophils % (auto) 77.8 % (37.0-80.0); Nucleated Red Blood Cells % 0.1 %; Red Blood Cells 1.82 10^6/uL (4.5-5.90); Red Cell Distribution Width 16.2 % (11.8-14.3)
[2022-09-13 05:56] LABS: Hemoglobin 5.5 g/dL (13.5-17.5)
[2022-09-13] MEDS: SODIUM CHLORIDE 0.9% 1,000 ML IV SCH ×3 (06:31→22:59)
[2022-09-13] MEDS: PIPERACILLIN-TAZOB 3.375GM 100 ML IV SCH ×3 (06:32→22:58)
[2022-09-13] MEDS: SUCRALFATE 1 GM/10 ML ORAL SUSP GT SCH ×4 (06:32→22:00)
[2022-09-13] MEDS: ACCU-CHEK COMFORT CURVE STRIP VI SCH ×4 (06:32→22:00)
[2022-09-13] MEDS: InsuLIN REG 1unit/0.01ml Soln (100units/ml) SC SCH ×4 (06:33→22:00)
[2022-09-13] MEDS: NICOTINE 21MG/24 HR TOPICAL PATCH TD SCH (10:00)
[2022-09-13] MEDS ORDERED: AMOXICILLIN TRIHYDRATE 250 MG CAP PO SCH (22:00)
[2022-09-13] MEDS: SUCRALFATE 1 GM/10 ML ORAL SUSP PO SCH (22:58)
[2022-09-13] MEDS: OCTREOTIDE ACETATE 500 MCG in SODIUM CHL 0.9% 99 ML IV SCH (22:59)
[2022-09-14] VITALS (9 sets, daily range): BP systolic 113–126; BP diastolic 61–90
[2022-09-14] MEDS: SODIUM CHLORIDE 0.9% 1,000 ML IV SCH ×3 (04:53→20:30)
[2022-09-14] MEDS: PANTOPRAZOLE 40mg/50ML NS AE 50 ML IV SCH ×5 (04:53→23:24)
[2022-09-14] MEDS: PIPERACILLIN-TAZOB 3.375GM 100 ML IV SCH ×3 (05:54→21:41)
[2022-09-14] MEDS: SUCRALFATE 1 GM/10 ML ORAL SUSP GT SCH (05:55)
[2022-09-14] MEDS: SUCRALFATE 1 GM/10 ML ORAL SUSP PO SCH ×4 (05:55→21:41)
[2022-09-14] MEDS: ACCU-CHEK COMFORT CURVE STRIP VI SCH ×4 (06:04→21:41)
[2022-09-14] MEDS: InsuLIN REG 1unit/0.01ml Soln (100units/ml) SC SCH ×4 (06:04→21:42)
[2022-09-14] MEDS: OCTREOTIDE ACETATE 500 MCG in SODIUM CHL 0.9% 99 ML IV SCH ×2 (06:04→17:54)
[2022-09-14 06:33] LABS: Basophils # (auto) 0.2 10 ^3/uL (0-0.2); Basophils % (auto) 1.1 % (0.0-2.0); Eosinophils # (auto) 0.6 10 ^3/uL (0-0.8); Hematocrit 23.7 % (41.0-53.0); Hemoglobin 8.3 g/dL (13.5-17.5); Lymphocytes # (auto) 1.8 10 ^3/uL (0.4-5.4); Lymphocytes % (auto) 12.3 % (10.0-50.0); Mean Corpuscular Hemoglobin 30.7 pg (28.0-32.0); Mean Corpuscular Hgb Conc. 34.9 g/dL (32.0-36.0); Mean Corpuscular Volume 87.9 fL (80.0-100.0); Monocytes % (auto) 6.7 % (0.0-12.0); Neutrophils % (auto) 75.9 % (37.0-80.0); Nucleated Red Blood Cells % 0.1 %; Red Cell Distribution Width 15.7 % (11.8-14.3); White Blood Cell 14.5 10^3/uL (4.4-10.8)
[2022-09-14 06:36] LABS: INR 1.06 (0.9-1.15)
[2022-09-14 06:40] LABS: Albumin 1.9 g/dL (3.4-5.0); Calcium 7.8 mg/dL (8.5-10.1); Potassium 3.9 mmol/L (3.5-5.1)
[2022-09-14 06:43] LABS: BUN/Creatinine Ratio 10.4 (10.0-20.0); Bilirubin, Total 1.2 mg/dL (0.2-1.0); Total Protein 5.3 g/dL (6.4-8.2)
[2022-09-14] MEDS: NICOTINE 21MG/24 HR TOPICAL PATCH TD SCH (09:24)
[2022-09-14] MEDS: CLARITHROMYCIN 500 MG PO SCH ×2 (10:00→21:41)
[2022-09-14] MEDS ORDERED: AZITHROMYCIN 250 MG TAB PO SCH (10:00)
[2022-09-14] MEDS ORDERED: AMOXICILLIN TRIHYDRATE 250 MG CAP PO ONE (11:00)
[2022-09-14] MEDS ORDERED: CLARITHROMYCIN 500 MG PO ONE (12:00)
[2022-09-14] MEDS: AMOXICILLIN TRIHYDRATE 250 MG CAP PO SCH ×2 (14:46→21:41)
[2022-09-15] VITALS (87 sets, daily range): BP systolic 75–124; BP diastolic 39–84
[2022-09-15 00:46] LABS: Basophils # (auto) 0.2 10 ^3/uL (0-0.2); Monocytes # (auto) 1.3 10 ^3/uL (0-1.3); Monocytes % (auto) 5.4 % (0.0-12.0); Neutrophils # (auto) 19.7 10 ^3/uL (1.6-8.6); Red Blood Cells 2.12 10^6/uL (4.5-5.90)
[2022-09-15 00:48] LABS: Basophils % (auto) 0.8 % (0.0-2.0); Eosinophils # (auto) 0.5 10 ^3/uL (0-0.8); Eosinophils % (auto) 2.1 % (0.0-7.0); Lymphocytes # (auto) 2.2 10 ^3/uL (0.4-5.4); Lymphocytes % (auto) 9.3 % (10.0-50.0); Mean Corpuscular Hgb Conc. 34.5 g/dL (32.0-36.0); Mean Corpuscular Volume 89.9 fL (80.0-100.0); Neutrophils % (auto) 82.4 % (37.0-80.0); Red Cell Distribution Width 15.5 % (11.8-14.3); White Blood Cell 23.9 10^3/uL (4.4-10.8)
[2022-09-15 00:54] LABS: Hemoglobin 6.6 g/dL (13.5-17.5)
[2022-09-15 01:10] LABS: Albumin 1.8 g/dL (3.4-5.0); Calcium 7.4 mg/dL (8.5-10.1); Potassium 3.5 mmol/L (3.5-5.1)
[2022-09-15 01:11] LABS: BUN/Creatinine Ratio 8.6 (10.0-20.0)
[2022-09-15 01:13] LABS: Bilirubin, Total 1.1 mg/dL (0.2-1.0); Total Protein 4.6 g/dL (6.4-8.2)
[2022-09-15] MEDS: PANTOPRAZOLE 40mg/50ML NS AE 50 ML IV SCH ×4 (02:22→20:39)
[2022-09-15] MEDS ORDERED: OCTREOTIDE ACETATE 100 MCG/ML VL ONE (04:58)
[2022-09-15] MEDS: OCTREOTIDE ACETATE 500 MCG in SODIUM CHL 0.9% 99 ML IV SCH ×3 (05:07→21:36)
[2022-09-15] MEDS: ACCU-CHEK COMFORT CURVE STRIP VI SCH ×4 (06:10→23:11)
[2022-09-15] MEDS: SUCRALFATE 1 GM/10 ML ORAL SUSP PO SCH ×4 (06:10→21:00)
[2022-09-15] MEDS: AMOXICILLIN TRIHYDRATE 250 MG CAP PO SCH ×2 (06:10→14:00)
[2022-09-15] MEDS: PIPERACILLIN-TAZOB 3.375GM 100 ML IV SCH ×3 (06:10→21:36)
[2022-09-15] MEDS: InsuLIN REG 1unit/0.01ml Soln (100units/ml) SC SCH ×4 (06:11→23:10)
[2022-09-15] MEDS: NICOTINE 21MG/24 HR TOPICAL PATCH TD SCH (09:20)
[2022-09-15] MEDS: CLARITHROMYCIN 500 MG PO SCH ×2 (09:21→21:00)
[2022-09-15] MEDS ORDERED: NALOXONE HCL 0.4 MG/ML VIAL ONE (10:02)
[2022-09-15] MEDS ORDERED: LIDOCAINE VISCOUS 2% 15ML UD ONE (10:02)
[2022-09-15] MEDS ORDERED: FLUMAZENIL 0.1 MG/ML INJ 10ML MDV IV ONE (10:02)
[2022-09-15] MEDS ORDERED: diphenhdrAMINE HCL 50 MG/1 ML VL ONE (10:03)
[2022-09-15] MEDS ORDERED: fentaNYL CITRATE 100 MCG/2 ML VL ONE (10:03)
[2022-09-15 10:23] LABS: Hematocrit 23.7 % (41.0-53.0); Mean Corpuscular Hemoglobin 29.9 pg (28.0-32.0); Mean Corpuscular Hgb Conc. 33.8 g/dL (32.0-36.0); Mean Corpuscular Volume 88.5 fL (80.0-100.0); Red Blood Cells 2.68 10^6/uL (4.5-5.90); Red Cell Distribution Width 16.3 % (11.8-14.3); White Blood Cell 18.2 10^3/uL (4.4-10.8)
[2022-09-15 10:54] LABS: Basophils % (manual) 0 (0.0-2.0); Blast Cells 0; Eosinophils % (manual) 0 (0-7); Metamyelocytes % 0; Myelocytes % 0; Promyelocytes % 0; Reactive Lymphocytes 0
[2022-09-15] MEDS: SODIUM CHLORIDE 0.9% 1,000 ML IV SCH ×4 (12:30→21:00)
[2022-09-15 13:35] LABS: Band Neutrophils % (manual) 3; Lymphocytes % (manual) 9 (10.0-50.0); Monocytes % (manual) 7 (0-12)
[2022-09-15] MEDS: fentaNYL CITRATE 100 MCG/2 ML VL ONE ×2 (17:25→17:30)
[2022-09-15] MEDS: MIDAZOLAM HCL 2MG/2ML 2ml VIAL (1mg/ml) ONE ×3 (17:25→17:37)
[2022-09-15] MEDS ORDERED: EPINEPHrine HCL 1 MG/10 ML SYRG ONE ×2 (17:31→17:32)
[2022-09-15] MEDS ORDERED: CLINIMIX PER PHARMACY 0 ML IV SCH (18:00)
[2022-09-15] MEDS ORDERED: DEXTROSE (50%) 50ML SYRG IV SCH (20:00)
[2022-09-15 20:09] LABS: Hemoglobin 7.4 g/dL (13.5-17.5)
[2022-09-15 20:11] LABS: Hematocrit 21.9 % (41.0-53.0)
[2022-09-15] MEDS: AMINO ACID INFUSION IN D10W 1,000 ML IV NR (20:40)
[2022-09-16] VITALS (63 sets, daily range): BP systolic 98–136; BP diastolic 55–84
[2022-09-16] MEDS: PANTOPRAZOLE 40mg/50ML NS AE 50 ML IV SCH ×4 (00:12→20:39)
[2022-09-16] MEDS: InsuLIN REG 1unit/0.01ml Soln (100units/ml) SC SCH ×4 (05:02→23:20)
[2022-09-16] MEDS: ACCU-CHEK COMFORT CURVE STRIP VI SCH ×4 (05:02→23:21)
[2022-09-16 05:04] LABS: Basophils # (auto) 0.2 10 ^3/uL (0-0.2); Basophils % (auto) 1.4 % (0.0-2.0); Eosinophils # (auto) 0.5 10 ^3/uL (0-0.8); Eosinophils % (auto) 3.5 % (0.0-7.0); Hematocrit 25.9 % (41.0-53.0); Lymphocytes # (auto) 2.2 10 ^3/uL (0.4-5.4); Lymphocytes % (auto) 15.6 % (10.0-50.0); Mean Corpuscular Hemoglobin 31.1 pg (28.0-32.0); Mean Corpuscular Hgb Conc. 34.9 g/dL (32.0-36.0); Mean Corpuscular Volume 88.9 fL (80.0-100.0); Monocytes % (auto) 7.1 % (0.0-12.0); Neutrophils # (auto) 10.2 10 ^3/uL (1.6-8.6); Neutrophils % (auto) 72.4 % (37.0-80.0); Nucleated Red Blood Cells % 0.1 %; Red Blood Cells 2.91 10^6/uL (4.5-5.90); Red Cell Distribution Width 16.3 % (11.8-14.3); White Blood Cell 14.1 10^3/uL (4.4-10.8)
[2022-09-16 05:18] LABS: BUN/Creatinine Ratio 12.6 (10.0-20.0); Calcium 7.6 mg/dL (8.5-10.1); Phosphorus 2.4 mg/dL (2.5-4.90); Potassium 3.5 mmol/L (3.5-5.1)
[2022-09-16] MEDS: PIPERACILLIN-TAZOB 3.375GM 100 ML IV SCH ×4 (06:08→21:17)
[2022-09-16] MEDS: SUCRALFATE 1 GM/10 ML ORAL SUSP PO SCH ×4 (06:08→21:10)
[2022-09-16] MEDS: NICOTINE 21MG/24 HR TOPICAL PATCH TD SCH (09:22)
[2022-09-16] MEDS: CLARITHROMYCIN 500 MG PO SCH ×2 (09:22→21:10)
[2022-09-16] MEDS: OCTREOTIDE ACETATE 500 MCG in SODIUM CHL 0.9% 99 ML IV SCH ×2 (11:16→20:39)
[2022-09-16 11:48] LABS: Hemoglobin 9.6 g/dL (13.5-17.5)
[2022-09-16] MEDS: SODIUM CHLORIDE 0.9% 1,000 ML IV SCH ×2 (12:36→20:40)
[2022-09-16] MEDS ORDERED: POTASSIUM PHOSPHATE 22 MEQ in SODIUM CHL 0.9% 100 ML IV ONE (13:15)
[2022-09-16 19:58] LABS: Hemoglobin 8.7 g/dL (13.5-17.5)
[2022-09-16 19:59] LABS: Hematocrit 24.7 % (41.0-53.0)
[2022-09-16] MEDS: AMINO ACID INFUSION IN D10W 1,000 ML IV NR (20:38)
[2022-09-17] VITALS (29 sets, daily range): BP systolic 100–130; BP diastolic 56–82
[2022-09-17] MEDS: PANTOPRAZOLE 40mg/50ML NS AE 50 ML IV SCH ×5 (00:15→22:55)
[2022-09-17] MEDS: OCTREOTIDE ACETATE 500 MCG in SODIUM CHL 0.9% 99 ML IV SCH ×2 (04:06→15:13)
[2022-09-17] MEDS: SODIUM CHLORIDE 0.9% 1,000 ML IV SCH (04:30)
[2022-09-17 04:42] LABS: Basophils # (auto) 0.2 10 ^3/uL (0-0.2); Monocytes # (auto) 0.7 10 ^3/uL (0-1.3)
[2022-09-17 04:44] LABS: Basophils % (auto) 1.4 % (0.0-2.0); Eosinophils # (auto) 0.5 10 ^3/uL (0-0.8); Eosinophils % (auto) 5.1 % (0.0-7.0); Hematocrit 23.2 % (41.0-53.0); Hemoglobin 8.5 g/dL (13.5-17.5); Lymphocytes # (auto) 1.9 10 ^3/uL (0.4-5.4); Lymphocytes % (auto) 17.7 % (10.0-50.0); Mean Corpuscular Hemoglobin 31.5 pg (28.0-32.0); Mean Corpuscular Volume 85.7 fL (80.0-100.0); Monocytes % (auto) 6.4 % (0.0-12.0); Neutrophils # (auto) 7.4 10 ^3/uL (1.6-8.6); Neutrophils % (auto) 69.4 % (37.0-80.0); Red Blood Cells 2.71 10^6/uL (4.5-5.90); Red Cell Distribution Width 16.7 % (11.8-14.3); White Blood Cell 10.7 10^3/uL (4.4-10.8)
[2022-09-17 04:45] LABS: Mean Corpuscular Hgb Conc. 36.7 g/dL (32.0-36.0)
[2022-09-17 05:07] LABS: BUN/Creatinine Ratio 10.9 (10.0-20.0); Calcium 7.7 mg/dL (8.5-10.1); Potassium 3.2 mmol/L (3.5-5.1)
[2022-09-17] MEDS: ACCU-CHEK COMFORT CURVE STRIP VI SCH ×3 (05:16→17:31)
[2022-09-17] MEDS: InsuLIN REG 1unit/0.01ml Soln (100units/ml) SC SCH ×3 (05:16→17:31)
[2022-09-17] MEDS: PIPERACILLIN-TAZOB 3.375GM 100 ML IV SCH ×3 (05:34→22:55)
[2022-09-17] MEDS: SUCRALFATE 1 GM/10 ML ORAL SUSP PO SCH ×4 (06:12→22:00)
[2022-09-17] MEDS: NICOTINE 21MG/24 HR TOPICAL PATCH TD SCH (10:00)
[2022-09-17] MEDS: CLARITHROMYCIN 500 MG PO SCH ×2 (10:00→22:00)
[2022-09-17] MEDS: POTASSIUM CHL 20MEQ/100ML 100 ML IV SCH ×2 (10:23→12:14)
[2022-09-17 12:15] LABS: Phosphorus 2.6 mg/dL (2.5-4.90)
[2022-09-17 15:18] LABS: Hemoglobin 8.6 g/dL (13.5-17.5)
[2022-09-17 15:20] LABS: Hematocrit 24.6 % (41.0-53.0)
[2022-09-17] MEDS: AMINO ACID INFUSION IN D10W 1,000 ML IV NR (19:43)
[2022-09-17] MEDS: ONDANSETRON HCL 4 MG/2 ML VIAL IV PRN (23:39)
[2022-09-18] VITALS (30 sets, daily range): BP systolic 79–117; BP diastolic 43–72
[2022-09-18] MEDS: SUCRALFATE 1 GM/10 ML ORAL SUSP PO SCH ×4 (01:53→21:43)
[2022-09-18] MEDS: OCTREOTIDE ACETATE 500 MCG in SODIUM CHL 0.9% 99 ML IV SCH ×3 (03:45→21:43)
[2022-09-18 03:59] LABS: Eosinophils # (auto) 0.4 10 ^3/uL (0-0.8); Lymphocytes # (auto) 1.8 10 ^3/uL (0.4-5.4); Neutrophils % (auto) 74.8 % (37.0-80.0); Nucleated Red Blood Cells % 0.1 %
[2022-09-18 04:01] LABS: Calcium 7.8 mg/dL (8.5-10.1); Potassium 3.4 mmol/L (3.5-5.1)
[2022-09-18 04:02] LABS: Basophils # (auto) 0.1 10 ^3/uL (0-0.2); Basophils % (auto) 1.2 % (0.0-2.0); Eosinophils % (auto) 3.4 % (0.0-7.0); Hematocrit 21.3 % (41.0-53.0); Hemoglobin 7.7 g/dL (13.5-17.5); Lymphocytes % (auto) 15.6 % (10.0-50.0); Mean Corpuscular Hemoglobin 31.5 pg (28.0-32.0); Mean Corpuscular Volume 87.6 fL (80.0-100.0); Monocytes # (auto) 0.6 10 ^3/uL (0-1.3); Neutrophils # (auto) 8.7 10 ^3/uL (1.6-8.6); Red Blood Cells 2.44 10^6/uL (4.5-5.90); Red Cell Distribution Width 17.3 % (11.8-14.3); White Blood Cell 11.7 10^3/uL (4.4-10.8)
[2022-09-18 04:06] LABS: Phosphorus 2.7 mg/dL (2.5-4.90); Total Protein 5.2 g/dL (6.4-8.2)
[2022-09-18] MEDS: PANTOPRAZOLE 40mg/50ML NS AE 50 ML IV SCH ×5 (05:00→23:09)
[2022-09-18] MEDS: InsuLIN REG 1unit/0.01ml Soln (100units/ml) SC SCH ×4 (06:00→20:00)
[2022-09-18] MEDS: ACCU-CHEK COMFORT CURVE STRIP VI SCH ×4 (06:27→17:01)
[2022-09-18] MEDS: PIPERACILLIN-TAZOB 3.375GM 100 ML IV SCH ×2 (06:28→14:15)
[2022-09-18] MEDS: CLARITHROMYCIN 500 MG PO SCH ×2 (10:00→21:43)
[2022-09-18] MEDS: NICOTINE 21MG/24 HR TOPICAL PATCH TD SCH (10:00)
[2022-09-18] MEDS ORDERED: levoFLOXacin 500MG 100 ML IV ONE (15:30)
[2022-09-18] MEDS: metroNIDAZOLE 500MG/100ML 100 ML IV SCH (17:01)
[2022-09-18 20:20] LABS: Basophils # (auto) 0.1 10 ^3/uL (0-0.2); Basophils % (auto) 1.2 % (0.0-2.0); Eosinophils # (auto) 0.3 10 ^3/uL (0-0.8); Eosinophils % (auto) 3.8 % (0.0-7.0); Hematocrit 20.8 % (41.0-53.0); Hemoglobin 7.4 g/dL (13.5-17.5); Lymphocytes # (auto) 1.9 10 ^3/uL (0.4-5.4); Lymphocytes % (auto) 21.8 % (10.0-50.0); Mean Corpuscular Hgb Conc. 35.6 g/dL (32.0-36.0); Mean Corpuscular Volume 89.9 fL (80.0-100.0); Monocytes # (auto) 0.6 10 ^3/uL (0-1.3); Monocytes % (auto) 7.1 % (0.0-12.0); Neutrophils # (auto) 5.9 10 ^3/uL (1.6-8.6); Neutrophils % (auto) 66.1 % (37.0-80.0); Red Blood Cells 2.32 10^6/uL (4.5-5.90); Red Cell Distribution Width 17.6 % (11.8-14.3); White Blood Cell 8.9 10^3/uL (4.4-10.8)
[2022-09-18] MEDS: AMINO ACID INFUSION IN D10W 1,000 ML IV NR (21:29)
[2022-09-19] MEDS: metroNIDAZOLE 500MG/100ML 100 ML IV SCH ×3 (00:58→17:28)
[2022-09-19] MEDS: ACCU-CHEK COMFORT CURVE STRIP VI SCH ×5 (01:10→23:32)
[2022-09-19] MEDS: PANTOPRAZOLE 40mg/50ML NS AE 50 ML IV SCH ×5 (04:59→23:28)
[2022-09-19 05:00] VITALS: BP_SYST 101; BP_SYST 112; BP_DIAS 54; BP_DIAS 56
[2022-09-19] MEDS: InsuLIN REG 1unit/0.01ml Soln (100units/ml) SC SCH ×5 (05:47→23:32)
[2022-09-19] MEDS: SUCRALFATE 1 GM/10 ML ORAL SUSP PO SCH ×4 (06:35→21:48)
[2022-09-19 06:46] LABS: BUN/Creatinine Ratio 16.7 (10.0-20.0)
[2022-09-19 06:47] LABS: Albumin 2.3 g/dL (3.4-5.0); Bilirubin, Total 0.7 mg/dL (0.2-1.0); Calcium 8.5 mg/dL (8.5-10.1); Phosphorus 1.9 mg/dL (2.5-4.90); Total Protein 5.7 g/dL (6.4-8.2)
[2022-09-19] MEDS: OCTREOTIDE ACETATE 500 MCG in SODIUM CHL 0.9% 99 ML IV SCH ×2 (07:03→17:27)
[2022-09-19 08:21] LABS: Basophils # (auto) 0.1 10 ^3/uL (0-0.2); Basophils % (auto) 1.4 % (0.0-2.0); Eosinophils # (auto) 0.4 10 ^3/uL (0-0.8); Monocytes # (auto) 0.6 10 ^3/uL (0-1.3); Neutrophils # (auto) 6.2 10 ^3/uL (1.6-8.6)
[2022-09-19 08:23] LABS: Eosinophils % (auto) 4.1 % (0.0-7.0); Hematocrit 20.8 % (41.0-53.0); Hemoglobin 7.4 g/dL (13.5-17.5); Lymphocytes # (auto) 1.9 10 ^3/uL (0.4-5.4); Lymphocytes % (auto) 20.9 % (10.0-50.0); Mean Corpuscular Hgb Conc. 35.3 g/dL (32.0-36.0); Mean Corpuscular Volume 90.6 fL (80.0-100.0); Monocytes % (auto) 6.5 % (0.0-12.0); Neutrophils % (auto) 67.1 % (37.0-80.0); Red Cell Distribution Width 18.2 % (11.8-14.3); White Blood Cell 9.2 10^3/uL (4.4-10.8)
[2022-09-19 09:20] VITALS: BP 111/67
[2022-09-19] MEDS: NICOTINE 21MG/24 HR TOPICAL PATCH TD SCH (09:42)
[2022-09-19] MEDS: levoFLOXacin 500MG 100 ML IV SCH (09:42)
[2022-09-19] MEDS: CLARITHROMYCIN 500 MG PO SCH ×2 (09:43→21:48)
[2022-09-19] MEDS ORDERED: SODIUM PHOSPHATES 40 MEQ in D5W 5% 250 ML IV ONE (11:00)
[2022-09-19 12:28] VITALS: BP 88/58
[2022-09-19 12:56] VITALS: BP 108/62
[2022-09-19 16:51] VITALS: BP 86/61
[2022-09-19] MEDS ORDERED: SODIUM FERR GLUC 62.5MG/5ML 125 MG in SODIUM CHL 0.9% 100 ML IV ONE (17:15)
[2022-09-19] MEDS: AMINO ACID INFUSION IN D10W 1,000 ML IV NR (20:04)
[2022-09-20] MEDS: metroNIDAZOLE 500MG/100ML 100 ML IV SCH ×3 (00:55→17:47)
[2022-09-20] MEDS: OCTREOTIDE ACETATE 500 MCG in SODIUM CHL 0.9% 99 ML IV SCH ×2 (03:02→14:00)
[2022-09-20] MEDS: PANTOPRAZOLE 40mg/50ML NS AE 50 ML IV SCH ×3 (04:30→14:30)
[2022-09-20 05:00] VITALS: BP 105/62
[2022-09-20] MEDS: InsuLIN REG 1unit/0.01ml Soln (100units/ml) SC SCH ×3 (06:00→18:00)
[2022-09-20] MEDS: SUCRALFATE 1 GM/10 ML ORAL SUSP PO SCH ×4 (06:26→22:00)
[2022-09-20 06:29] LABS: Basophils # (auto) 0.1 10 ^3/uL (0-0.2); Eosinophils # (auto) 0.3 10 ^3/uL (0-0.8); Hemoglobin 7.6 g/dL (13.5-17.5); Lymphocytes % (auto) 23.4 % (10.0-50.0); Mean Corpuscular Hemoglobin 31.6 pg (28.0-32.0); Monocytes # (auto) 0.6 10 ^3/uL (0-1.3); Neutrophils # (auto) 5.6 10 ^3/uL (1.6-8.6)
[2022-09-20] MEDS: ACCU-CHEK COMFORT CURVE STRIP VI SCH ×3 (06:29→17:47)
[2022-09-20 06:32] LABS: Basophils % (auto) 1.3 % (0.0-2.0); Eosinophils % (auto) 3.3 % (0.0-7.0); Hematocrit 22.3 % (41.0-53.0); Mean Corpuscular Volume 92.8 fL (80.0-100.0); Monocytes % (auto) 7.1 % (0.0-12.0); Neutrophils % (auto) 64.9 % (37.0-80.0); Nucleated Red Blood Cells % 0.1 %; White Blood Cell 8.6 10^3/uL (4.4-10.8)
[2022-09-20 06:47] LABS: Albumin 2.3 g/dL (3.4-5.0); Calcium 8.2 mg/dL (8.5-10.1); Magnesium 2.1 mg/dL (1.6-2.6); Potassium 3.9 mmol/L (3.5-5.1)
[2022-09-20 06:52] LABS: BUN/Creatinine Ratio 15.4 (10.0-20.0); Bilirubin, Total 0.8 mg/dL (0.2-1.0); Total Protein 5.6 g/dL (6.4-8.2)
[2022-09-20 09:00] VITALS: BP 100/63
[2022-09-20] MEDS ORDERED: SODIUM FERR GLUC 62.5MG/5ML 125 MG in SODIUM CHL 0.9% 100 ML IV ONE (09:15)
[2022-09-20] MEDS: CLARITHROMYCIN 500 MG PO SCH ×2 (10:00→22:00)
[2022-09-20] MEDS: NICOTINE 21MG/24 HR TOPICAL PATCH TD SCH (10:00)
[2022-09-20] MEDS: levoFLOXacin 500MG 100 ML IV SCH (10:00)
[2022-09-20] MEDS: Ensure HIGH Protein Chocolate 8oz Bottle PO SCH ×2 (12:00→17:47)
[2022-09-20] MEDS: SODIUM FERR GLUC 62.5MG/5ML 125 MG in SODIUM CHL 0.9% 100 ML IV SCH (12:30)
[2022-09-20 13:09] VITALS: BP 105/49
[2022-09-20] MEDS: AMOXICILLIN TRIHYDRATE 250 MG CAP PO SCH ×2 (13:30→22:00)
[2022-09-20 16:41] VITALS: BP 99/67
[2022-09-20 22:00] VITALS: BP 108/68
[2022-09-21] VITALS (9 sets, daily range): BP systolic 91–106; BP diastolic 50–64
[2022-09-21] MEDS: ONDANSETRON HCL 4 MG/2 ML VIAL IV PRN (00:19)
[2022-09-21] MEDS: ACCU-CHEK COMFORT CURVE STRIP VI SCH ×5 (00:22→23:21)
[2022-09-21] MEDS: PANTOPRAZOLE 40mg/50ML NS AE 50 ML IV SCH ×6 (00:22→22:01)
[2022-09-21] MEDS: AMINO ACID INFUSION IN D10W 1,000 ML IV NR ×2 (00:22→19:00)
[2022-09-21] MEDS: OCTREOTIDE ACETATE 500 MCG in SODIUM CHL 0.9% 99 ML IV SCH ×3 (00:32→18:55)
[2022-09-21 01:44] LABS: Hemoglobin 6.4 g/dL (13.5-17.5)
[2022-09-21] MEDS: metroNIDAZOLE 500MG/100ML 100 ML IV SCH ×3 (01:49→17:30)
[2022-09-21 02:59] LABS: Basophils # (auto) 0.3 10 ^3/uL (0-0.2); Basophils % (auto) 2.9 % (0.0-2.0); Eosinophils # (auto) 0.1 10 ^3/uL (0-0.8); Eosinophils % (auto) 1.3 % (0.0-7.0); Hematocrit 18.4 % (41.0-53.0); Lymphocytes # (auto) 1.3 10 ^3/uL (0.4-5.4); Lymphocytes % (auto) 13.3 % (10.0-50.0); Mean Corpuscular Hemoglobin 31.9 pg (28.0-32.0); Mean Corpuscular Hgb Conc. 34.1 g/dL (32.0-36.0); Mean Corpuscular Volume 93.7 fL (80.0-100.0); Monocytes # (auto) 0.3 10 ^3/uL (0-1.3); Monocytes % (auto) 3.6 % (0.0-12.0); Neutrophils # (auto) 7.5 10 ^3/uL (1.6-8.6); Neutrophils % (auto) 78.9 % (37.0-80.0); Red Blood Cells 1.97 10^6/uL (4.5-5.90); Red Cell Distribution Width 19.9 % (11.8-14.3); White Blood Cell 9.4 10^3/uL (4.4-10.8)
[2022-09-21 03:01] LABS: Hemoglobin 6.3 g/dL (13.5-17.5)
[2022-09-21] MEDS: InsuLIN REG 1unit/0.01ml Soln (100units/ml) SC SCH ×5 (06:00→23:21)
[2022-09-21] MEDS: AMOXICILLIN TRIHYDRATE 250 MG CAP PO SCH ×3 (06:00→22:00)
[2022-09-21] MEDS: SUCRALFATE 1 GM/10 ML ORAL SUSP PO SCH ×4 (06:17→22:00)
[2022-09-21 06:38] LABS: Albumin 2.1 g/dL (3.4-5.0); BUN/Creatinine Ratio 17.7 (10.0-20.0); Calcium 8.2 mg/dL (8.5-10.1); Magnesium 2.2 mg/dL (1.6-2.6); Phosphorus 2.6 mg/dL (2.5-4.90); Potassium 4.1 mmol/L (3.5-5.1)
[2022-09-21] MEDS: Ensure HIGH Protein Chocolate 8oz Bottle PO SCH ×3 (08:00→18:00)
[2022-09-21] MEDS ORDERED: IOHEXOL 350 MG/ML 100ML IJ ONE (08:54)
[2022-09-21] MEDS: levoFLOXacin 500MG 100 ML IV SCH (11:52)
[2022-09-21 12:07] LABS: Hematocrit 23.7 % (41.0-53.0)
[2022-09-21] MEDS: NICOTINE 21MG/24 HR TOPICAL PATCH TD SCH (12:09)
[2022-09-21] MEDS: CLARITHROMYCIN 500 MG PO SCH ×2 (12:09→22:00)
[2022-09-21 12:44] LABS: INR 1.13 (0.9-1.15); Partial Thromboplastin Time 26.5 sec (24.6-33.4)
[2022-09-21] MEDS: SODIUM FERR GLUC 62.5MG/5ML 125 MG in SODIUM CHL 0.9% 100 ML IV SCH (12:51)
[2022-09-22] MEDS: metroNIDAZOLE 500MG/100ML 100 ML IV SCH ×3 (00:14→19:02)
[2022-09-22] MEDS: PANTOPRAZOLE 40mg/50ML NS AE 50 ML IV SCH ×5 (00:15→21:56)
[2022-09-22] MEDS: OCTREOTIDE ACETATE 500 MCG in SODIUM CHL 0.9% 99 ML IV SCH ×2 (04:25→15:55)
[2022-09-22] MEDS: AMOXICILLIN TRIHYDRATE 250 MG CAP PO SCH ×3 (04:26→21:40)
[2022-09-22 05:03] LABS: Basophils # (auto) 0.1 10 ^3/uL (0-0.2); Basophils % (auto) 1.8 % (0.0-2.0); Eosinophils # (auto) 0.2 10 ^3/uL (0-0.8); Eosinophils % (auto) 2.9 % (0.0-7.0); Hematocrit 23.6 % (41.0-53.0); Hemoglobin 7.9 g/dL (13.5-17.5); Lymphocytes # (auto) 1.9 10 ^3/uL (0.4-5.4); Mean Corpuscular Hemoglobin 29.5 pg (28.0-32.0); Mean Corpuscular Hgb Conc. 33.4 g/dL (32.0-36.0); Mean Corpuscular Volume 88.2 fL (80.0-100.0); Monocytes # (auto) 0.6 10 ^3/uL (0-1.3); Monocytes % (auto) 8.7 % (0.0-12.0); Neutrophils # (auto) 4.1 10 ^3/uL (1.6-8.6); Neutrophils % (auto) 59.6 % (37.0-80.0); Nucleated Red Blood Cells % 0.1 %; Red Blood Cells 2.68 10^6/uL (4.5-5.90); Red Cell Distribution Width 24.4 % (11.8-14.3); White Blood Cell 6.9 10^3/uL (4.4-10.8)
[2022-09-22 05:12] LABS: % Iron Saturation 26.4 % (20-55)
[2022-09-22 05:13] LABS: Potassium 3.9 mmol/L (3.5-5.1)
[2022-09-22 05:22] LABS: Albumin 2.3 g/dL (3.4-5.0); Calcium 8.4 mg/dL (8.5-10.1); Magnesium 1.9 mg/dL (1.6-2.6); Phosphorus 2.4 mg/dL (2.5-4.90)
[2022-09-22] MEDS: ACCU-CHEK COMFORT CURVE STRIP VI SCH ×4 (05:38→23:42)
[2022-09-22] MEDS: InsuLIN REG 1unit/0.01ml Soln (100units/ml) SC SCH ×4 (05:38→23:42)
[2022-09-22 05:45] VITALS: BP 90/57
[2022-09-22] MEDS: SUCRALFATE 1 GM/10 ML ORAL SUSP PO SCH ×4 (05:47→21:40)
[2022-09-22] MEDS: Ensure HIGH Protein Chocolate 8oz Bottle PO SCH ×3 (08:00→18:00)
[2022-09-22 09:00] VITALS: BP 93/60
[2022-09-22] MEDS: NICOTINE 21MG/24 HR TOPICAL PATCH TD SCH (10:00)
[2022-09-22] MEDS: CLARITHROMYCIN 500 MG PO SCH ×2 (10:00→21:40)
[2022-09-22] MEDS: levoFLOXacin 500MG 100 ML IV SCH (11:17)
[2022-09-22 12:47] VITALS: BP 94/56
[2022-09-22] MEDS: SODIUM FERR GLUC 62.5MG/5ML 125 MG in SODIUM CHL 0.9% 100 ML IV SCH (12:57)
[2022-09-22] MEDS ORDERED: SODIUM PHOSPHATES 20 MEQ in SODIUM CHL 0.9% 100 ML IV ONE (16:00)
[2022-09-22 17:24] VITALS: BP 110/55
[2022-09-22] MEDS: AMINO ACID INFUSION IN D10W 1,000 ML IV NR (18:43)
[2022-09-22 22:00] VITALS: BP 99/58
[2022-09-23] VITALS (13 sets, daily range): BP systolic 90–120; BP diastolic 54–74
[2022-09-23] MEDS: metroNIDAZOLE 500MG/100ML 100 ML IV SCH ×3 (00:58→17:00)
[2022-09-23] MEDS: OCTREOTIDE ACETATE 500 MCG in SODIUM CHL 0.9% 99 ML IV SCH ×3 (00:58→20:57)
[2022-09-23] MEDS: PANTOPRAZOLE 40mg/50ML NS AE 50 ML IV SCH ×5 (02:22→22:06)
[2022-09-23] MEDS: AMINO ACID INFUSION IN D10W 1,000 ML IV NR (03:04)
[2022-09-23 05:12] LABS: Basophils # (auto) 0.1 10 ^3/uL (0-0.2); Eosinophils # (auto) 0.2 10 ^3/uL (0-0.8); Lymphocytes # (auto) 1.4 10 ^3/uL (0.4-5.4); Mean Corpuscular Hemoglobin 30.2 pg (28.0-32.0); Monocytes # (auto) 0.6 10 ^3/uL (0-1.3)
[2022-09-23 05:13] LABS: Basophils % (auto) 1.2 % (0.0-2.0); Eosinophils % (auto) 1.9 % (0.0-7.0); Hematocrit 19.1 % (41.0-53.0); Lymphocytes % (auto) 14.9 % (10.0-50.0); Mean Corpuscular Hgb Conc. 33.9 g/dL (32.0-36.0); Mean Corpuscular Volume 89.1 fL (80.0-100.0); Monocytes % (auto) 6.6 % (0.0-12.0); Neutrophils # (auto) 7.1 10 ^3/uL (1.6-8.6); Neutrophils % (auto) 75.4 % (37.0-80.0); Red Blood Cells 2.14 10^6/uL (4.5-5.90); White Blood Cell 9.5 10^3/uL (4.4-10.8)
[2022-09-23 05:32] LABS: Potassium 3.3 mmol/L (3.5-5.1)
[2022-09-23 05:36] LABS: Albumin 2.1 g/dL (3.4-5.0); BUN/Creatinine Ratio 15.5 (10.0-20.0); Calcium 7.7 mg/dL (8.5-10.1); Magnesium 1.8 mg/dL (1.6-2.6); Phosphorus 2.9 mg/dL (2.5-4.90)
[2022-09-23 05:57] LABS: Red Cell Distribution Width 24.7 % (11.8-14.3)
[2022-09-23 05:58] LABS: Hemoglobin 6.5 g/dL (13.5-17.5)
[2022-09-23] MEDS: InsuLIN REG 1unit/0.01ml Soln (100units/ml) SC SCH ×4 (06:00→23:45)
[2022-09-23] MEDS: ACCU-CHEK COMFORT CURVE STRIP VI SCH ×4 (07:52→23:44)
[2022-09-23] MEDS: SUCRALFATE 1 GM/10 ML ORAL SUSP PO SCH ×4 (07:52→21:57)
[2022-09-23] MEDS: AMOXICILLIN TRIHYDRATE 250 MG CAP PO SCH ×3 (07:52→21:57)
[2022-09-23] MEDS: Ensure HIGH Protein Chocolate 8oz Bottle PO SCH ×3 (08:00→18:07)
[2022-09-23] MEDS ORDERED: POTASSIUM PHOSPHATE 22 MEQ in SODIUM CHL 0.9% 100 ML IV ONE (08:15)
[2022-09-23] MEDS: NICOTINE 21MG/24 HR TOPICAL PATCH TD SCH (10:49)
[2022-09-23] MEDS: levoFLOXacin 500MG 100 ML IV SCH (10:51)
[2022-09-23] MEDS: CLARITHROMYCIN 500 MG PO SCH ×2 (10:52→21:57)
[2022-09-23] MEDS: SODIUM FERR GLUC 62.5MG/5ML 125 MG in SODIUM CHL 0.9% 100 ML IV SCH (12:00)
[2022-09-24] MEDS: metroNIDAZOLE 500MG/100ML 100 ML IV SCH ×3 (00:46→17:09)
[2022-09-24] MEDS: PANTOPRAZOLE 40mg/50ML NS AE 50 ML IV SCH ×5 (03:09→22:54)
[2022-09-24 05:00] VITALS: BP 110/74
[2022-09-24 05:53] LABS: Potassium 4.1 mmol/L (3.5-5.1)
[2022-09-24] MEDS: ACCU-CHEK COMFORT CURVE STRIP VI SCH ×4 (05:54→23:47)
[2022-09-24] MEDS: InsuLIN REG 1unit/0.01ml Soln (100units/ml) SC SCH ×4 (05:54→23:47)
[2022-09-24 05:59] LABS: Albumin 2.3 g/dL (3.4-5.0); BUN/Creatinine Ratio 16.8 (10.0-20.0); Bilirubin, Total 0.9 mg/dL (0.2-1.0); Calcium 8.3 mg/dL (8.5-10.1); Magnesium 2.2 mg/dL (1.6-2.6); Phosphorus 2.4 mg/dL (2.5-4.90)
[2022-09-24] MEDS: SUCRALFATE 1 GM/10 ML ORAL SUSP PO SCH ×4 (06:27→21:57)
[2022-09-24] MEDS: AMOXICILLIN TRIHYDRATE 250 MG CAP PO SCH ×3 (06:27→21:57)
[2022-09-24] MEDS: OCTREOTIDE ACETATE 500 MCG in SODIUM CHL 0.9% 99 ML IV SCH ×2 (06:34→16:48)
[2022-09-24] MEDS ORDERED: AMINO ACID INFUSION IN D10W 1,000 ML IV NR (07:15)
[2022-09-24] MEDS: Ensure HIGH Protein Chocolate 8oz Bottle PO SCH ×3 (08:00→17:44)
[2022-09-24 08:40] VITALS: BP 119/65
[2022-09-24] MEDS ORDERED: TPN PER PHARMACY 0 ML IV SCH (10:30)
[2022-09-24 10:34] LABS: Basophils # (auto) 0.1 10 ^3/uL (0-0.2); Basophils % (auto) 1.3 % (0.0-2.0); Eosinophils # (auto) 0.2 10 ^3/uL (0-0.8); Eosinophils % (auto) 3.6 % (0.0-7.0); Hematocrit 26.6 % (41.0-53.0); Hemoglobin 8.8 g/dL (13.5-17.5); Lymphocytes # (auto) 2.1 10 ^3/uL (0.4-5.4); Lymphocytes % (auto) 32.1 % (10.0-50.0); Mean Corpuscular Hemoglobin 30.2 pg (28.0-32.0); Mean Corpuscular Hgb Conc. 33.1 g/dL (32.0-36.0); Mean Corpuscular Volume 91.5 fL (80.0-100.0); Monocytes # (auto) 0.5 10 ^3/uL (0-1.3); Monocytes % (auto) 8.6 % (0.0-12.0); Neutrophils # (auto) 3.5 10 ^3/uL (1.6-8.6); Neutrophils % (auto) 54.4 % (37.0-80.0); Nucleated Red Blood Cells % 0.1 %; Red Blood Cells 2.91 10^6/uL (4.5-5.90); Red Cell Distribution Width 20.6 % (11.8-14.3); White Blood Cell 6.4 10^3/uL (4.4-10.8)
[2022-09-24] MEDS: levoFLOXacin 500MG 100 ML IV SCH (10:35)
[2022-09-24] MEDS: CLARITHROMYCIN 500 MG PO SCH ×2 (10:36→21:57)
[2022-09-24] MEDS ORDERED: SODIUM PHOSPHATES 20 MEQ in SODIUM CHL 0.9% 100 ML IV ONE (11:30)
[2022-09-24 13:00] VITALS: BP 130/67
[2022-09-24 16:44] VITALS: BP 109/70
[2022-09-24] MEDS: SODIUM FERR GLUC 62.5MG/5ML 125 MG in SODIUM CHL 0.9% 100 ML IV SCH (17:43)
[2022-09-24] MEDS ORDERED: TPN PER PHARMACY IV NR ×6 (20:00)
[2022-09-24 22:00] VITALS: BP 128/71
[2022-09-25] MEDS: metroNIDAZOLE 500MG/100ML 100 ML IV SCH ×3 (00:33→17:14)
[2022-09-25] MEDS: OCTREOTIDE ACETATE 500 MCG in SODIUM CHL 0.9% 99 ML IV SCH ×3 (02:39→23:34)
[2022-09-25] MEDS: PANTOPRAZOLE 40mg/50ML NS AE 50 ML IV SCH ×4 (04:07→20:25)
[2022-09-25 05:00] VITALS: BP 102/62
[2022-09-25] MEDS: InsuLIN REG 1unit/0.01ml Soln (100units/ml) SC SCH ×4 (05:45→23:35)
[2022-09-25] MEDS: ACCU-CHEK COMFORT CURVE STRIP VI SCH ×4 (05:45→23:34)
[2022-09-25] MEDS: AMOXICILLIN TRIHYDRATE 250 MG CAP PO SCH ×3 (06:07→22:12)
[2022-09-25] MEDS: SUCRALFATE 1 GM/10 ML ORAL SUSP PO SCH ×4 (06:07→22:13)
[2022-09-25 06:52] LABS: Albumin 2.5 g/dL (3.4-5.0); Calcium 8.5 mg/dL (8.5-10.1); Magnesium 2.1 mg/dL (1.6-2.6); Potassium 3.5 mmol/L (3.5-5.1)
[2022-09-25 06:57] LABS: Bilirubin, Total 0.7 mg/dL (0.2-1.0); Phosphorus 3.1 mg/dL (2.5-4.90); Total Protein 5.3 g/dL (6.4-8.2)
[2022-09-25 07:02] LABS: Basophils # (auto) 0.1 10 ^3/uL (0-0.2); Basophils % (auto) 1.5 % (0.0-2.0); Eosinophils # (auto) 0.2 10 ^3/uL (0-0.8); Eosinophils % (auto) 3.3 % (0.0-7.0); Hematocrit 26.7 % (41.0-53.0); Mean Corpuscular Hemoglobin 30.9 pg (28.0-32.0); Mean Corpuscular Hgb Conc. 33.8 g/dL (32.0-36.0); Mean Corpuscular Volume 91.3 fL (80.0-100.0); Monocytes # (auto) 0.6 10 ^3/uL (0-1.3); Monocytes % (auto) 10.1 % (0.0-12.0); Neutrophils # (auto) 3.4 10 ^3/uL (1.6-8.6); Neutrophils % (auto) 54.1 % (37.0-80.0); Nucleated Red Blood Cells % 0.1 %; Red Blood Cells 2.93 10^6/uL (4.5-5.90); White Blood Cell 6.3 10^3/uL (4.4-10.8)
[2022-09-25 08:03] LABS: Red Cell Distribution Width 21.7 % (11.8-14.3)
[2022-09-25] MEDS: levoFLOXacin 500MG 100 ML IV SCH (08:46)
[2022-09-25] MEDS: Ensure HIGH Protein Chocolate 8oz Bottle PO SCH ×3 (08:49→18:42)
[2022-09-25] MEDS: CLARITHROMYCIN 500 MG PO SCH ×2 (08:49→22:13)
[2022-09-25 09:00] VITALS: BP 107/55
[2022-09-25] MEDS ORDERED: POTASSIUM CHL 20MEQ/100ML 100 ML IV ONE (10:30)
[2022-09-25 12:36] VITALS: BP 126/63
[2022-09-25] MEDS: SODIUM FERR GLUC 62.5MG/5ML 125 MG in SODIUM CHL 0.9% 100 ML IV SCH (13:09)
[2022-09-25 16:55] VITALS: BP 131/75
[2022-09-25] MEDS ORDERED: TPN PER PHARMACY IV NR ×8 (20:00)
[2022-09-25 21:41] VITALS: BP 110/78
[2022-09-25 21:54] VITALS: BP 110/78
[2022-09-26] MEDS: PANTOPRAZOLE 40mg/50ML NS AE 50 ML IV SCH ×5 (01:00→22:09)
[2022-09-26] MEDS: metroNIDAZOLE 500MG/100ML 100 ML IV SCH ×3 (01:02→17:20)
[2022-09-26 04:30] VITALS: BP 130/86
[2022-09-26] MEDS: ACCU-CHEK COMFORT CURVE STRIP VI SCH ×4 (05:59→23:28)
[2022-09-26] MEDS: AMOXICILLIN TRIHYDRATE 250 MG CAP PO SCH ×3 (05:59→22:08)
[2022-09-26] MEDS: SUCRALFATE 1 GM/10 ML ORAL SUSP PO SCH ×4 (06:00→22:09)
[2022-09-26] MEDS: InsuLIN REG 1unit/0.01ml Soln (100units/ml) SC SCH ×4 (06:00→23:27)
[2022-09-26 06:58] LABS: Albumin 2.4 g/dL (3.4-5.0); Calcium 8.2 mg/dL (8.5-10.1); Magnesium 2.1 mg/dL (1.6-2.6)
[2022-09-26 07:02] LABS: BUN/Creatinine Ratio 16.4 (10.0-20.0); Bilirubin, Total 0.6 mg/dL (0.2-1.0); Phosphorus 2.4 mg/dL (2.5-4.90); Total Protein 5.2 g/dL (6.4-8.2)
[2022-09-26 07:07] LABS: Basophils # (auto) 0.1 10 ^3/uL (0-0.2); Basophils % (auto) 1.3 % (0.0-2.0); Eosinophils # (auto) 0.3 10 ^3/uL (0-0.8); Eosinophils % (auto) 4.2 % (0.0-7.0); Hemoglobin 9.1 g/dL (13.5-17.5); Lymphocytes # (auto) 1.8 10 ^3/uL (0.4-5.4); Lymphocytes % (auto) 26.7 % (10.0-50.0); Mean Corpuscular Hemoglobin 30.9 pg (28.0-32.0); Mean Corpuscular Hgb Conc. 33.6 g/dL (32.0-36.0); Monocytes # (auto) 0.6 10 ^3/uL (0-1.3); Monocytes % (auto) 9.4 % (0.0-12.0); Neutrophils # (auto) 3.9 10 ^3/uL (1.6-8.6); Neutrophils % (auto) 58.4 % (37.0-80.0); Nucleated Red Blood Cells % 0.1 %; Red Blood Cells 2.93 10^6/uL (4.5-5.90); White Blood Cell 6.7 10^3/uL (4.4-10.8)
[2022-09-26 07:43] LABS: Red Cell Distribution Width 21.9 % (11.8-14.3)
[2022-09-26] MEDS: Ensure HIGH Protein Chocolate 8oz Bottle PO SCH ×3 (08:27→18:22)
[2022-09-26 08:30] VITALS: BP 142/88
[2022-09-26] MEDS: OCTREOTIDE ACETATE 500 MCG in SODIUM CHL 0.9% 99 ML IV SCH ×2 (08:58→18:13)
[2022-09-26] MEDS ORDERED: SODIUM PHOSP 20MEQ(15MMOL) IN NS 100 ML IV ONE (09:30)
[2022-09-26] MEDS: levoFLOXacin 500MG 100 ML IV SCH (09:56)
[2022-09-26] MEDS: CLARITHROMYCIN 500 MG PO SCH ×2 (09:56→22:08)
[2022-09-26] MEDS: SODIUM FERR GLUC 62.5MG/5ML 125 MG in SODIUM CHL 0.9% 100 ML IV SCH (12:24)
[2022-09-26 12:30] VITALS: BP 142/74
[2022-09-26 17:12] VITALS: BP 119/54
[2022-09-26] MEDS: TPN PER PHARMACY IV NR ×9 (19:58)
[2022-09-26 23:21] VITALS: BP 124/76
[2022-09-27] MEDS: metroNIDAZOLE 500MG/100ML 100 ML IV SCH ×3 (01:11→16:28)
[2022-09-27] MEDS: PANTOPRAZOLE 40mg/50ML NS AE 50 ML IV SCH ×5 (03:02→23:22)
[2022-09-27 04:52] VITALS: BP 125/73
[2022-09-27] MEDS: OCTREOTIDE ACETATE 500 MCG in SODIUM CHL 0.9% 99 ML IV SCH ×2 (05:10→14:52)
[2022-09-27] MEDS: ACCU-CHEK COMFORT CURVE STRIP VI SCH ×3 (05:11→17:49)
[2022-09-27] MEDS: InsuLIN REG 1unit/0.01ml Soln (100units/ml) SC SCH ×3 (05:11→17:49)
[2022-09-27 06:27] LABS: Basophils # (auto) 0.1 10 ^3/uL (0-0.2); Eosinophils # (auto) 0.3 10 ^3/uL (0-0.8); Eosinophils % (auto) 4.1 % (0.0-7.0); Hemoglobin 9.5 g/dL (13.5-17.5); Lymphocytes % (auto) 31.2 % (10.0-50.0); Mean Corpuscular Hemoglobin 31.2 pg (28.0-32.0); Mean Corpuscular Hgb Conc. 33.9 g/dL (32.0-36.0); Mean Corpuscular Volume 92.1 fL (80.0-100.0); Monocytes # (auto) 0.6 10 ^3/uL (0-1.3); Monocytes % (auto) 9.4 % (0.0-12.0); Neutrophils # (auto) 3.5 10 ^3/uL (1.6-8.6); Neutrophils % (auto) 54.3 % (37.0-80.0); Nucleated Red Blood Cells % 0.2 %; Red Blood Cells 3.04 10^6/uL (4.5-5.90); Red Cell Distribution Width 21.9 % (11.8-14.3); White Blood Cell 6.5 10^3/uL (4.4-10.8)
[2022-09-27] MEDS: SUCRALFATE 1 GM/10 ML ORAL SUSP PO SCH ×4 (06:28→22:08)
[2022-09-27] MEDS: AMOXICILLIN TRIHYDRATE 250 MG CAP PO SCH ×3 (06:28→22:08)
[2022-09-27 07:01] LABS: Potassium 3.9 mmol/L (3.5-5.1)
[2022-09-27 07:13] LABS: Albumin 2.5 g/dL (3.4-5.0); BUN/Creatinine Ratio 22.6 (10.0-20.0); Bilirubin, Total 0.5 mg/dL (0.2-1.0); Calcium 8.3 mg/dL (8.5-10.1); Magnesium 2.3 mg/dL (1.6-2.6); Total Protein 5.4 g/dL (6.4-8.2)
[2022-09-27] MEDS: Ensure HIGH Protein Chocolate 8oz Bottle PO SCH ×3 (08:07→17:50)
[2022-09-27 08:55] VITALS: BP 125/74
[2022-09-27] MEDS: CLARITHROMYCIN 500 MG PO SCH ×2 (10:11→22:17)
[2022-09-27] MEDS: levoFLOXacin 500MG 100 ML IV SCH (10:11)
[2022-09-27] MEDS: SODIUM FERR GLUC 62.5MG/5ML 125 MG in SODIUM CHL 0.9% 100 ML IV SCH (11:51)
[2022-09-27 12:57] VITALS: BP 104/60
[2022-09-27 16:32] VITALS: BP 103/37
[2022-09-27] MEDS: TPN PER PHARMACY IV NR ×9 (19:52)
[2022-09-27 22:00] VITALS: BP 120/82
[2022-09-28] MEDS: OCTREOTIDE ACETATE 500 MCG in SODIUM CHL 0.9% 99 ML IV SCH ×3 (01:07→21:19)
[2022-09-28] MEDS: metroNIDAZOLE 500MG/100ML 100 ML IV SCH ×3 (01:07→17:36)
[2022-09-28] MEDS: PANTOPRAZOLE 40mg/50ML NS AE 50 ML IV SCH ×4 (04:46→21:25)
[2022-09-28 05:00] VITALS: BP 101/60
[2022-09-28 05:06] LABS: Calcium 7.7 mg/dL (8.5-10.1); Potassium 3.9 mmol/L (3.5-5.1)
[2022-09-28 05:13] LABS: Albumin 2.3 g/dL (3.4-5.0); BUN/Creatinine Ratio 30.3 (10.0-20.0); Bilirubin, Total 0.5 mg/dL (0.2-1.0); Phosphorus 2.2 mg/dL (2.5-4.90); Total Protein 4.9 g/dL (6.4-8.2)
[2022-09-28] MEDS: InsuLIN REG 1unit/0.01ml Soln (100units/ml) SC SCH ×4 (06:00→18:00)
[2022-09-28] MEDS: AMOXICILLIN TRIHYDRATE 250 MG CAP PO SCH ×3 (06:52→21:19)
[2022-09-28] MEDS: ACCU-CHEK COMFORT CURVE STRIP VI SCH ×4 (06:53→18:58)
[2022-09-28] MEDS: SUCRALFATE 1 GM/10 ML ORAL SUSP PO SCH ×4 (06:53→21:19)
[2022-09-28] MEDS: TPN PER PHARMACY IV NR ×27 (07:30→20:08)
[2022-09-28] MEDS: Ensure HIGH Protein Chocolate 8oz Bottle PO SCH ×3 (08:00→18:00)
[2022-09-28 08:15] VITALS: BP 109/54
[2022-09-28] MEDS ORDERED: SODIUM PHOSP 20MEQ(15MMOL) IN NS 100 ML IV ONE (09:45)
[2022-09-28] MEDS: CLARITHROMYCIN 500 MG PO SCH ×2 (10:48→21:20)
[2022-09-28] MEDS: levoFLOXacin 500MG 100 ML IV SCH (10:49)
[2022-09-28 12:00] VITALS: BP 103/57
[2022-09-28 17:18] VITALS: BP 110/50
[2022-09-28 22:00] VITALS: BP 104/58
[2022-09-29] MEDS: PANTOPRAZOLE 40mg/50ML NS AE 50 ML IV SCH ×5 (00:24→22:08)
[2022-09-29] MEDS: ACCU-CHEK COMFORT CURVE STRIP VI SCH ×4 (00:25→18:00)
[2022-09-29] MEDS: metroNIDAZOLE 500MG/100ML 100 ML IV SCH ×3 (01:50→18:54)
[2022-09-29 05:00] VITALS: BP 110/64
[2022-09-29 05:13] LABS: Albumin 2.4 g/dL (3.4-5.0); Calcium 7.9 mg/dL (8.5-10.1); Potassium 4.2 mmol/L (3.5-5.1)
[2022-09-29 05:19] LABS: BUN/Creatinine Ratio 25.4 (10.0-20.0); Bilirubin, Total 0.4 mg/dL (0.2-1.0); Magnesium 2.2 mg/dL (1.6-2.6); Phosphorus 2.9 mg/dL (2.5-4.90)
[2022-09-29] MEDS: InsuLIN REG 1unit/0.01ml Soln (100units/ml) SC SCH ×4 (06:00→18:00)
[2022-09-29 06:15] LABS: Basophils # (auto) 0.1 10 ^3/uL (0-0.2); Basophils % (auto) 1.5 % (0.0-2.0); Eosinophils # (auto) 0.3 10 ^3/uL (0-0.8); Eosinophils % (auto) 3.4 % (0.0-7.0); Hematocrit 20.6 % (41.0-53.0); Hemoglobin 7.1 g/dL (13.5-17.5); Lymphocytes # (auto) 2.9 10 ^3/uL (0.4-5.4); Lymphocytes % (auto) 36.5 % (10.0-50.0); Mean Corpuscular Hemoglobin 32.9 pg (28.0-32.0); Mean Corpuscular Hgb Conc. 34.5 g/dL (32.0-36.0); Mean Corpuscular Volume 95.4 fL (80.0-100.0); Monocytes # (auto) 0.6 10 ^3/uL (0-1.3); Monocytes % (auto) 7.6 % (0.0-12.0); Neutrophils # (auto) 4.1 10 ^3/uL (1.6-8.6); Nucleated Red Blood Cells % 0.1 %; Red Blood Cells 2.15 10^6/uL (4.5-5.90)
[2022-09-29] MEDS: AMOXICILLIN TRIHYDRATE 250 MG CAP PO SCH ×3 (06:31→22:09)
[2022-09-29] MEDS: SUCRALFATE 1 GM/10 ML ORAL SUSP PO SCH ×4 (06:32→22:09)
[2022-09-29] MEDS: OCTREOTIDE ACETATE 500 MCG in SODIUM CHL 0.9% 99 ML IV SCH ×2 (06:32→18:53)
[2022-09-29 08:00] VITALS: BP 106/56
[2022-09-29] MEDS: Ensure HIGH Protein Chocolate 8oz Bottle PO SCH ×3 (08:00→18:00)
[2022-09-29] MEDS: CLARITHROMYCIN 500 MG PO SCH ×2 (09:21→22:09)
[2022-09-29] MEDS: levoFLOXacin 500MG 100 ML IV SCH (09:21)
[2022-09-29 12:00] VITALS: BP 115/85
[2022-09-29 16:00] VITALS: BP 120/83
[2022-09-29] MEDS: TPN PER PHARMACY IV NR ×9 (19:50)
[2022-09-29 22:00] VITALS: BP 120/51
[2022-09-30] MEDS: metroNIDAZOLE 500MG/100ML 100 ML IV SCH ×2 (00:48→08:52)
[2022-09-30] MEDS: PANTOPRAZOLE 40mg/50ML NS AE 50 ML IV SCH ×4 (02:25→22:24)
[2022-09-30] MEDS: OCTREOTIDE ACETATE 500 MCG in SODIUM CHL 0.9% 99 ML IV SCH ×3 (02:30→13:36)
[2022-09-30 05:00] VITALS: BP 97/61
[2022-09-30 05:57] LABS: Basophils # (auto) 0.1 10 ^3/uL (0-0.2); Hemoglobin 7.3 g/dL (13.5-17.5); Monocytes # (auto) 0.5 10 ^3/uL (0-1.3); Nucleated Red Blood Cells % 0.1 %
[2022-09-30] MEDS: InsuLIN REG 1unit/0.01ml Soln (100units/ml) SC SCH ×3 (06:00→12:00)
[2022-09-30 06:04] LABS: Basophils % (auto) 1.7 % (0.0-2.0); Eosinophils # (auto) 0.2 10 ^3/uL (0-0.8); Eosinophils % (auto) 3.9 % (0.0-7.0); Hematocrit 21.5 % (41.0-53.0); Lymphocytes # (auto) 2.5 10 ^3/uL (0.4-5.4); Lymphocytes % (auto) 39.7 % (10.0-50.0); Mean Corpuscular Hemoglobin 32.4 pg (28.0-32.0); Mean Corpuscular Hgb Conc. 33.8 g/dL (32.0-36.0); Mean Corpuscular Volume 95.6 fL (80.0-100.0); Monocytes % (auto) 8.3 % (0.0-12.0); Neutrophils # (auto) 2.9 10 ^3/uL (1.6-8.6); Neutrophils % (auto) 46.4 % (37.0-80.0); Red Blood Cells 2.25 10^6/uL (4.5-5.90); White Blood Cell 6.3 10^3/uL (4.4-10.8)
[2022-09-30 06:12] LABS: Red Cell Distribution Width 22.2 % (11.8-14.3)
[2022-09-30] MEDS: ACCU-CHEK COMFORT CURVE STRIP VI SCH ×3 (06:12→12:00)
[2022-09-30] MEDS: AMOXICILLIN TRIHYDRATE 250 MG CAP PO SCH ×3 (06:12→22:24)
[2022-09-30] MEDS: SUCRALFATE 1 GM/10 ML ORAL SUSP PO SCH ×3 (06:12→22:24)
[2022-09-30 08:00] VITALS: BP 102/59
[2022-09-30] MEDS: Ensure HIGH Protein Chocolate 8oz Bottle PO SCH ×3 (08:00→18:00)
[2022-09-30] MEDS: CLARITHROMYCIN 500 MG PO SCH ×2 (09:30→22:24)
[2022-09-30] MEDS: levoFLOXacin 500MG 100 ML IV SCH (09:31)
[2022-09-30 12:00] VITALS: BP 115/80
[2022-09-30 16:00] VITALS: BP 98/57
[2022-09-30 22:00] VITALS: BP 93/55
[2022-10-01] VITALS (8 sets, daily range): BP systolic 93–112; BP diastolic 51–72
[2022-10-01] MEDS: metroNIDAZOLE 500MG/100ML 100 ML IV SCH ×3 (00:36→19:40)
[2022-10-01] MEDS: PANTOPRAZOLE 40mg/50ML NS AE 50 ML IV SCH ×5 (04:15→20:17)
[2022-10-01 05:27] LABS: Basophils # (auto) 0.1 10 ^3/uL (0-0.2); Monocytes # (auto) 0.5 10 ^3/uL (0-1.3); Neutrophils # (auto) 5.7 10 ^3/uL (1.6-8.6); Nucleated Red Blood Cells % 0.1 %; Red Blood Cells 1.92 10^6/uL (4.5-5.90); White Blood Cell 8.5 10^3/uL (4.4-10.8)
[2022-10-01 05:29] LABS: Basophils % (auto) 1.2 % (0.0-2.0); Eosinophils # (auto) 0.1 10 ^3/uL (0-0.8); Eosinophils % (auto) 1.6 % (0.0-7.0); Hematocrit 18.6 % (41.0-53.0); Lymphocytes % (auto) 23.9 % (10.0-50.0); Mean Corpuscular Hgb Conc. 33.1 g/dL (32.0-36.0); Mean Corpuscular Volume 96.6 fL (80.0-100.0); Monocytes % (auto) 6.2 % (0.0-12.0); Neutrophils % (auto) 67.1 % (37.0-80.0)
[2022-10-01 05:35] LABS: Red Cell Distribution Width 21.8 % (11.8-14.3)
[2022-10-01 05:36] LABS: Hemoglobin 6.1 g/dL (13.5-17.5)
[2022-10-01] MEDS: AMOXICILLIN TRIHYDRATE 250 MG CAP PO SCH ×2 (06:41→14:56)
[2022-10-01] MEDS: SUCRALFATE 1 GM/10 ML ORAL SUSP PO SCH ×4 (06:41→22:00)
[2022-10-01] MEDS: Ensure HIGH Protein Chocolate 8oz Bottle PO SCH ×3 (08:00→18:00)
[2022-10-01] MEDS: OCTREOTIDE ACETATE 500 MCG in SODIUM CHL 0.9% 99 ML IV SCH ×3 (14:35→23:48)
[2022-10-01] MEDS: CLARITHROMYCIN 500 MG PO SCH ×2 (14:45→22:00)
[2022-10-02] MEDS: metroNIDAZOLE 500MG/100ML 100 ML IV SCH ×3 (00:43→15:42)
[2022-10-02] MEDS: PANTOPRAZOLE 40mg/50ML NS AE 50 ML IV SCH ×5 (00:55→21:47)
[2022-10-02 05:00] VITALS: BP 108/76
[2022-10-02 06:14] LABS: Basophils # (auto) 0.1 10 ^3/uL (0-0.2); Hematocrit 20.3 % (41.0-53.0); Neutrophils # (auto) 2.9 10 ^3/uL (1.6-8.6); White Blood Cell 6.6 10^3/uL (4.4-10.8)
[2022-10-02 06:17] LABS: Basophils % (auto) 1.6 % (0.0-2.0); Eosinophils # (auto) 0.3 10 ^3/uL (0-0.8); Lymphocytes # (auto) 2.7 10 ^3/uL (0.4-5.4); Lymphocytes % (auto) 41.5 % (10.0-50.0); Mean Corpuscular Hemoglobin 32.6 pg (28.0-32.0); Mean Corpuscular Hgb Conc. 33.9 g/dL (32.0-36.0); Mean Corpuscular Volume 96.3 fL (80.0-100.0); Monocytes # (auto) 0.6 10 ^3/uL (0-1.3); Monocytes % (auto) 8.4 % (0.0-12.0); Neutrophils % (auto) 44.5 % (37.0-80.0); Nucleated Red Blood Cells % 0.1 %; Red Blood Cells 2.11 10^6/uL (4.5-5.90)
[2022-10-02 06:26] LABS: Red Cell Distribution Width 21.9 % (11.8-14.3)
[2022-10-02 06:29] LABS: Hemoglobin 6.9 g/dL (13.5-17.5)
[2022-10-02] MEDS: SUCRALFATE 1 GM/10 ML ORAL SUSP PO SCH ×4 (06:53→21:47)
[2022-10-02 07:22] LABS: Hematocrit 21.5 % (41.0-53.0); Hemoglobin 7.3 g/dL (13.5-17.5)
[2022-10-02 08:49] VITALS: BP 108/61
[2022-10-02] MEDS: CLARITHROMYCIN 500 MG PO SCH ×2 (10:00→21:48)
[2022-10-02] MEDS: Ensure HIGH Protein Chocolate 8oz Bottle PO SCH ×3 (11:15→19:06)
[2022-10-02 13:00] VITALS: BP 91/54
[2022-10-02] MEDS: OCTREOTIDE ACETATE 500 MCG in SODIUM CHL 0.9% 99 ML IV SCH (14:51)
[2022-10-02 16:59] VITALS: BP 97/62
[2022-10-02 21:59] VITALS: BP 99/66
[2022-10-03] MEDS: OCTREOTIDE ACETATE 500 MCG in SODIUM CHL 0.9% 99 ML IV SCH ×3 (00:15→20:27)
[2022-10-03] MEDS: metroNIDAZOLE 500MG/100ML 100 ML IV SCH ×3 (01:32→18:52)
[2022-10-03] MEDS: PANTOPRAZOLE 40mg/50ML NS AE 50 ML IV SCH ×4 (02:15→20:34)
[2022-10-03 05:00] VITALS: BP_SYST 120; BP_SYST 91; BP_DIAS 56; BP_DIAS 74
[2022-10-03] MEDS: SUCRALFATE 1 GM/10 ML ORAL SUSP PO SCH ×4 (06:44→22:02)
[2022-10-03 08:40] VITALS: BP 103/69
[2022-10-03] MEDS: Ensure HIGH Protein Chocolate 8oz Bottle PO SCH ×3 (08:53→18:54)
[2022-10-03] MEDS: CLARITHROMYCIN 500 MG PO SCH ×2 (10:00→22:00)
[2022-10-03 12:56] VITALS: BP 98/59
[2022-10-03 17:00] VITALS: BP 112/60
[2022-10-03 22:00] VITALS: BP 100/61
[2022-10-04] MEDS: metroNIDAZOLE 500MG/100ML 100 ML IV SCH ×3 (01:29→17:00)
[2022-10-04] MEDS: PANTOPRAZOLE 40mg/50ML NS AE 50 ML IV SCH ×4 (01:37→15:00)
[2022-10-04 05:00] VITALS: BP 109/60
[2022-10-04 05:58] LABS: Basophils # (auto) 0.1 10 ^3/uL (0-0.2); Basophils % (auto) 1.2 % (0.0-2.0); Eosinophils % (auto) 4.7 % (0.0-7.0); Monocytes # (auto) 0.6 10 ^3/uL (0-1.3); Red Blood Cells 2.27 10^6/uL (4.5-5.90)
[2022-10-04 06:01] LABS: Eosinophils # (auto) 0.3 10 ^3/uL (0-0.8); Hemoglobin 7.5 g/dL (13.5-17.5); Lymphocytes # (auto) 2.3 10 ^3/uL (0.4-5.4); Lymphocytes % (auto) 42.4 % (10.0-50.0); Mean Corpuscular Hemoglobin 32.9 pg (28.0-32.0); Mean Corpuscular Hgb Conc. 33.9 g/dL (32.0-36.0); Mean Corpuscular Volume 96.9 fL (80.0-100.0); Monocytes % (auto) 11.1 % (0.0-12.0); Neutrophils # (auto) 2.2 10 ^3/uL (1.6-8.6); Neutrophils % (auto) 40.6 % (37.0-80.0); Nucleated Red Blood Cells % 0.2 %; White Blood Cell 5.4 10^3/uL (4.4-10.8)
[2022-10-04] MEDS: OCTREOTIDE ACETATE 500 MCG in SODIUM CHL 0.9% 99 ML IV SCH ×2 (06:01→16:45)
[2022-10-04 06:18] LABS: Red Cell Distribution Width 21.6 % (11.8-14.3)
[2022-10-04] MEDS: SUCRALFATE 1 GM/10 ML ORAL SUSP PO SCH ×3 (06:45→17:34)
[2022-10-04] MEDS: Ensure HIGH Protein Chocolate 8oz Bottle PO SCH ×3 (08:00→17:34)
[2022-10-04] MEDS ORDERED: CLAR1TAB21 PO (08:22)
[2022-10-04] MEDS ORDERED: AMOX500T3 PO (08:22)
[2022-10-04] MEDS ORDERED: PANT40T PO (08:22)
[2022-10-04] MEDS ORDERED: FERR-7 PO (08:22)
[2022-10-04] MEDS ORDERED: SUCR1TAB PO (08:22)
[2022-10-04 09:00] VITALS: BP 125/71
[2022-10-04] MEDS: CLARITHROMYCIN 500 MG PO SCH (10:00)
[2022-10-04 13:00] VITALS: BP 100/56
[2022-10-04 17:00] VITALS: BP 108/74
== END 2022-10-04 19:20 | disposition home or self-care (01) | DRG 720 ==
LOC: EDBD 16:27 → ER 16:27 → TELE 23:22 → ICU WEST 23:35 → EAST 09-08 23:05 → TELE-EAST 09-13 14:37 → ICU WEST 09-15 01:55 → TELE-CENTR 09-18 18:20 → CENTRAL 09-18 20:43
PROVIDERS: ADMIT Nurse Practitioner Family; ATTEND Family Medicine
PROC: 30233N1 Transfusion of Nonautologous Red Blood Cells into Peripheral Vein, Percutaneous Approach (ICD-10-PCS; principal; 2022-09-02)
PROC: 5A1955Z Respiratory Ventilation, Greater than 96 Consecutive Hours (ICD-10-PCS; 2022-09-02)
PROC: 0BH17EZ Insertion of Endotracheal Airway into Trachea, Via Natural or Artificial Opening (ICD-10-PCS; 2022-09-02)
PROC: 5A12012 Performance of Cardiac Output, Single, Manual (ICD-10-PCS; 2022-09-03)
PROC: 30233K1 Transfusion of Nonautologous Frozen Plasma into Peripheral Vein, Percutaneous Approach (ICD-10-PCS; 2022-09-04)
PROC: 0DB98ZX Excision of Duodenum, Via Natural or Artificial Opening Endoscopic, Diagnostic (ICD-10-PCS; 2022-09-05)
PROC: 0DB68ZX Excision of Stomach, Via Natural or Artificial Opening Endoscopic, Diagnostic (ICD-10-PCS; 2022-09-05)
PROC: 5A0935A Assistance with Respiratory Ventilation, Less than 24 Consecutive Hours, High Flow/Velocity Cannula (ICD-10-PCS; 2022-09-07)
PROC: 0W3P8ZZ Control Bleeding in Gastrointestinal Tract, Via Natural or Artificial Opening Endoscopic (ICD-10-PCS; 2022-09-15)
DX: A41.9 Sepsis, unspecified organism (principal); J96.01 Acute respiratory failure with hypoxia; I46.9 Cardiac arrest, cause unspecified; K72.00 Acute and subacute hepatic failure without coma; J69.0 Pneumonitis due to inhalation of food and vomit; N17.0 Acute kidney failure with tubular necrosis; E43 Unspecified severe protein-calorie malnutrition; K22.11 Ulcer of esophagus with bleeding; G92.9 Unspecified toxic encephalopathy; Z20.822 Contact with and (suspected) exposure to COVID-19; K29.71 Gastritis, unspecified, with bleeding; R65.21 Severe sepsis with septic shock; R57.0 Cardiogenic shock; K85.90 Acute pancreatitis without necrosis or infection, unspecified; D62 Acute posthemorrhagic anemia; E87.1 Hypo-osmolality and hyponatremia; D75.839 Thrombocytosis, unspecified; E87.5 Hyperkalemia; I10 Essential (primary) hypertension; N39.0 Urinary tract infection, site not specified; I49.5 Sick sinus syndrome; K26.4 Chronic or unspecified duodenal ulcer with hemorrhage; K44.9 Diaphragmatic hernia without obstruction or gangrene; K25.4 Chronic or unspecified gastric ulcer with hemorrhage; B96.81 Helicobacter pylori [H. pylori] as the cause of diseases classified elsewhere; K31.82 Dieulafoy lesion (hemorrhagic) of stomach and duodenum
CPT/HCPCS: 31500; 36415; 36556; 36600; 43239; 43255; 71045; 71250; 74175; 74176; 76700; 76775; 80048; 80053; 80061; 80069; 80202; 80307; 81001; 82565; 82805; 82962; 83036; 83540; 83550; 83605; 83690; 83735; 84100; 84443; 84478; 84484; 85007; 85014; 85018; 85025; 85027; 85610; 85730; 86704; 86706; 86708; 86803; 86850; 86900; 86901; 86920; 87040; 87070; 87081; 87086; 87205; 87340; 87426; 92950; 93005; 93306; 94002; 94003; 94640; 96361; 96365; 96367; 97110; 97116; 97163; 97530; 99291; C9113; G0378; J0461; J1815; J1956; J2250; J2405; J2543; J3480; J3490; J7060; P9047